=== PATIENT | male | born 1970 | race Caucasian/White ===

== ENCOUNTER 2024-10-22 05:25 | Observation (INO) ==
--- NOTE | 2024-10-20 11:19 | Anesthesiology Consultation ---
Date of Service October 20, 2024 Assessment & Plan (1) Encounter for pre-operative examination: Chart Review Chart Review: Acceptable Risk for Surgery and Patient NOT seen in Pre Admission Testing -POC INR and EKG ordered for AM of surgery Infectious Disease screening: Per PAT nursing assessment on 10/09/24, No known infectious disease contacts in past 10 days or current infectious disease symptoms. No recent travel outside the country. Inmate at correctional facility; will have COVID testing prior to surgery per protocol History Surgery Operation Date: 10/22/24 07:00 Proposed Procedures p Robotic Assisted Laparoscopic Excision of Pelvic Mass, Possible Radical Prostatectomy, Possible Bowel Resection/Colectomy, Possible Bladder Resection, Possible Open, Possible Pelvic Lymph Node Dissection - Kenroy Morgan, DO Height/Weight Height: 5 ft 10 in Weight: 97.522 kg Allergies Allergy/AdvReac Type Severity Reaction Status Date / Time iodine Allergy Unknown Verified 10/10/23 08:43 Penicillins Allergy Unknown Verified 10/10/23 08:43 shellfish derived Allergy Unknown Verified 10/10/23 08:43 bacitracin AdvReac Unknown Verified 10/10/23 08:43 [From Neosporin ([id number])] neomycin AdvReac Unknown Verified 10/10/23 08:43 [From Neosporin ([id number])] polymyxin B AdvReac Unknown Verified 10/10/23 08:43 [From Neosporin ([id number])] Seafood Allergy Unknown Uncoded 10/10/23 08:43 [facility] [place] AdvReac Contraindicated Uncoded 10/09/24 11:03 for pt. per [facility] record Medications Home Medications Medication Instructions Recorded Confirmed Last Taken amlodipine 10 mg tablet 10 mg PO DAILY 08/16/20 10/09/24 10/09/23 08:00 metoprolol tartrate 50 mg tablet 50 mg PO BID 08/16/20 10/09/24 10/10/23 06:00 (Lopressor) atorvastatin 10 mg tablet 10 mg PO HS 10/01/23 10/09/24 10/09/23 17:30 duloxetine 60 mg capsule,delayed 60 mg PO HS 10/01/23 10/09/24 10/09/23 17:30 release sprinkle warfarin 3 mg tablet 6 mg PO HS 04/02/24 04/11/25 04/10/24 17:30 mirtazapine 30 mg tablet 30 mg PO HS 10/09/24 10/09/24 Unknown oxcarbazepine 150 mg tablet 150 mg PO QAM 10/09/24 10/09/24 Unknown topiramate 50 mg tablet 50 mg PO HS 10/09/24 10/09/24 Unknown Past Medical History Medical History (Updated 10/20/24 @ 11:24 by Marylou Velasquez PA-C) Anxiety disorder Atrial fibrillation BPH loc w/o ur obs/LUTS Depressive disorder Disease of anus and rectum, unspecified Elevated PSA Hyperlipidemia Hypertension Inmate in correctional facility Other intervertebral disc degeneration, lumbar region Personal history of transient ischemic attack (TIA), and cerebral infarction without residual deficits Noted per remote [facility] records dating back to 2020 Unspecified hemorrhoids Past Surgical History Surgical History (Updated 10/20/24 @ 11:26 by Marylou Velasquez PA-C) Hx of cystoscopy cysto, prostate bx, transrectal US 10/10/23: GA: LMA#5 iGel Surgical history unknown Previous surgical history unknown until procedure at [facility] 2023 Social History Smoking Status: Unknown if ever smoked Testing Laboratory Results 10/14/24: WBC: 5.09 H/H: 14.2/42.5 PLATELETS: 194 SODIUM: 141 POTASSIUM: 3.9 CHLORIDE: 105 CO2: 27 BUN: 14 CREATININE: 0.76 GLUCOSE: 81 urine culture: no growth Electrocardiogram Date: 10/14/24 Afib with slow ventricular response, rate: 56bpm. NS TWA (*unconfirmed) Chest X-Ray Date: 10/14/24 Findings: + NAD
[~2024-10-22 05:25] MED LIST: ALLERGY Noted to ORDERED Medication SCH
[2024-10-22] MEDS: LR 15ML/HR IV SCH (05:54)
[2024-10-22 06:20] LABS: INR 2.4 (0.9-1.1); Partial Thromboplastin Ratio 1.4; Partial Thromboplastin Time 37 Seconds (21-31); Prothrombin Time 24.5 Seconds (9.0-12.0)
--- NOTE | 2024-10-22 06:31 | History & Physical Report ---
Date of Service October 22, 2024 Assessment & Plan (1) Pelvic mass: (2) Prostatic abscess: (3) Prostatic mass: (4) Bladder outlet obstruction: (5) Elevated PSA: (6) HTN (hypertension): (7) Atrial fibrillation: (8) Elevated INR: (9) Personal history of transient ischemic attack (TIA), and cerebral infarction without residual deficits: Plan Patient with large prostatic fluid collection versus pelvic mass versus abscess versus inflammatory lesion within the pelvis. Imaging does appear to have mass coming off of the prostate. Difficulty determining if related to seminal vesicle prostate or other structure in the pelvis. Most recent imaging had been thoroughly reviewed different options have been discussed extensively with patient and have been coordinated through the [facility] [place]. Patient is on Coumadin with history of A-fib and previous TIA. This was not he ld for the recommended 5 days prior to the planned abdominal surgery with robotic intervention possible resection of mass and possible resection of bowel bladder or other structure. Patient's Coumadin was only held starting yesterday. Had last dosed on Saturday. Is on 6 mg. Patient's INR remained elevated this morning on reanalysis. Reviewed extensively increased risks specifically related to bleeding. Reviewed other alternatives and options. Discussed significant increased risk with abdominal surgery. Reviewed options moving forward including possible transurethral attempt at drainage. Did discuss location of masslike structure and large fluid collection and the appearance of possible prostatic mass/cyst versus abscess. Reviewed extensively options including attempted transurethral resection. Did discuss risk of bleeding with this approach. Discussed concern related to mildly elevated INR. Due to concern about possible development of infection or sepsis if fluid collection is abscess and concern for possible obstruction especially of the right ureter due to location reviewed options for surgical intervention and discussed risks and benefits extensively. Discussed options to closely monitor and observe patient after procedure for bleeding issues and other concerns while INR still elevated. Discussed continued holding of the Coumadin and close monitoring while hospitalized. Will likely need hospitalist assessment and evaluation for monitoring and for evaluation for possible reinitiation of the Coumadin after procedure. Reviewed extensively with patient. [facility] [place] [facility] as well as the perioperative team and operative team. Risks and benefits were thoroughly reviewed. Coordinating with anesthesiology as well. Risks and benefits discussed at length for procedure. These include bleeding, infection, injury to surrounding tissues or organs, and risks associated with anesthesia. Patient states understanding and agrees to proceed. Will sign consent and proceed. Plan for transurethral resection of prostate, possible biopsy of pelvic mass, possible retrograde pyelograms bilateral History of Present Illness Primary Care Provider: [facility] Patient here for procedure. Patient with large cystic pelvic mass versus lesion greater than 11 cm found on imaging. Previously had been biopsied with findings for inflammatory issues with outside endings of malignancy. Initially had plan to move forward with abdominal surgery for excision and removal of mass. Patient is on Coumadin. This was not held for the recommended 5 days and was only stopped on Saturday with only 1 dose held. Patient's INR was checked this morning and found to be persistently elevated at 2.4. Due to this discussed extensively with patient significant increased risk and concern with bleeding especially with abdominal approach and possible need for open resection or surgical intervention on other systems. Otherwise no changes in medical issues. No major changes in urinary issues. Continued issues and concerns. No change in pain or discomfort. No severe fevers or chills. No chest pain or shortness of breath. Risks and benefits discussed at length for procedure. These include bleeding, infection, injury to surrounding tissues or organs, and risks associated with anesthesia. Patient states understanding and agrees to proceed. Consent and supporting information completed. Allergies Allergy/AdvReac Type Severity Reaction Status Date / Time iodine Allergy Unknown Swelling Verified 10/22/24 05:52 of Lip/Tongue/Throat Penicillins Allergy Unknown Swelling Verified 10/22/24 05:52 of Lip/Tongue/Throat shellfish derived Allergy Unknown Swelling Verified 10/22/24 05:52 of Lip/Tongue/Throat bacitracin AdvReac Unknown Redness of Verified 10/22/24 05:53 [From Neosporin Skin ([id number])] neomycin AdvReac Unknown Redness of Verified 10/22/24 05:53 [From Neosporin Skin ([id number])] polymyxin B AdvReac Unknown Redness of Verified 10/22/24 05:53 [From Neosporin Skin ([id number])] Seafood Allergy Unknown Swelling Uncoded 10/22/24 05:52 of Lip/Tongue/Throat [facility] [place] AdvReac Contraindicated Uncoded 10/22/24 05:33 for pt. per [facility] record Home Medications Medication Instructions Recorded Confirmed Type amlodipine 10 mg tablet 10 mg PO BID 08/16/20 10/22/24 History metoprolol tartrate 50 mg tablet 50 mg PO BID 08/16/20 10/22/24 History (Lopressor) atorvastatin 10 mg tablet 10 mg PO HS 10/01/23 10/22/24 History duloxetine 60 mg capsule,delayed 60 mg PO HS 10/01/23 10/22/24 History release sprinkle warfarin 3 mg tablet 6 mg PO HS 10/01/23 10/22/24 History mirtazapine 30 mg tablet 30 mg PO HS 10/09/24 10/22/24 History oxcarbazepine 150 mg tablet 150 mg PO QAM 10/09/24 10/22/24 History topiramate 50 mg tablet 50 mg PO HS 10/09/24 10/22/24 History Past Med/Surg History Problem List (Updated 10/22/24 @ 06:39 by Kenroy Morgan DO) Elevated INR Prostatic abscess Pelvic mass Bladder outlet obstruction Prostatic mass Elevated PSA Atrial fibrillation HTN (hypertension) Anxiety Depression Medical History Inmate in correctional facility Unspecified hemorrhoids Personal history of transient ischemic attack (TIA), and cerebral infarction without residual deficits Noted per remote [facility] records dating back to 2020 Other intervertebral disc degeneration, lumbar region Hypertension Hyperlipidemia Elevated PSA Disease of anus and rectum, unspecified Atrial fibrillation Anxiety disorder Depressive disorder BPH loc w/o ur obs/LUTS Surgical History Hx of cystoscopy cysto, prostate bx, transrectal US 10/10/23: GA: LMA#5 iGel Surgical history unknown Previous surgical history unknown until procedure at [facility] 2023 Social History Smoking Status: Unknown if ever smoked Preferred Language: Unknown Communication Ability: Unknown Deodorizer Operator Required: No Current Living Situation: Other Current Living Situation Comment: inmate [facility] Feels Safe at Home: Yes Assistive Devices Comment: Unknown Review of Systems All systems reviewed & are unremarkable except as noted in HPI & below Physical Exam Physical Exam: General: Alert/Arousable. No Acute illness. Obese. HEENT: Inspection normal. Normal inspection of face. Normal inspection of neck. Psychologic: Normal affect/No change in mentation. Respiratory: No use of accessory muscles. No respiratory changes or exacerbation or changes with tachypnea or dyspnea. Cardiovascular: No tachycardia Skin: [place] and Dry. No new rashes or visible lesions. Abdomen: Normal inspection. No guarding. Results & Data Vital Signs (Past 12 Hours) Vital Signs Temp Pulse Resp BP Pulse Ox O2 Del Method 10/22/24 05:35 36.8 C 87 18 127/80 97 Room Air PG Care Time/CCT Total # of Minutes Spent Total Time Spent with Patient: Total time spent is greater than 50% in coordination of care (as documented) at patient's floor/unit and/or counseling patient: Coding Level of Care Code None Diagnoses Pelvic mass R19.00 Prostatic abscess N41.2 Prostatic mass N42.89 Bladder outlet obstruction N32.0 Elevated PSA R97.20 HTN (hypertension) I10 Atrial fibrillation I48.91 Elevated INR R79.1 Personal history of transient ischemic attack (TIA), and cerebral infarction without residual deficits Z86.73
[2024-10-22] MEDS ORDERED: PROPOFOL IV EMULSION 10 MG/ML 20 ML VIAL IV ONE (06:37)
[2024-10-22] MEDS ORDERED: LIDOCAINE 2% 2 ML VIAL/AMP(20MG/ML) INFIL ONE (06:37)
[2024-10-22] MEDS ORDERED: DEXAMETHASONE SOD INJ 4 MG/ML VIAL ONE (06:37)
[2024-10-22] MEDS ORDERED: ONDANSETRON INJ 2 MG/ML 2 ML VIAL ONE (06:37)
[2024-10-22] MEDS ORDERED: fentaNYL citrate PF 100 MCG/2 ML VIAL ONE ×2 (06:37→08:25)
[2024-10-22] MEDS ORDERED: MIDAZOLAM HCL 1 MG/ML 2ML VIAL ONE (06:37)
[2024-10-22] MEDS: CIPROFLOXACIN / D5W 400 MG/200 ML BAG IV SCH ×2 (06:59→18:36)
[2024-10-22] MEDS ORDERED: MoRPHine SULFATE 2 MG/ML CARP IV PRN (07:05)
[2024-10-22] MEDS ORDERED: ONDANSETRON INJ 2 MG/ML 2 ML VIAL IV PRN (07:05)
[2024-10-22] MEDS ORDERED: CIPROFLOXACIN / D5W 400 MG/200 ML BAG IV SCH ×2 (07:15→16:45)
[2024-10-22] MEDS ORDERED: PROMETHAZINE HCL 6.25 MG in SODIUM CHLORIDE 0.9% 50 ML IV PRN (07:24)
[2024-10-22] MEDS ORDERED: fentaNYL citrate PF 100 MCG/2 ML VIAL IV PRN (07:24)
[2024-10-22] MEDS ORDERED: ATROPINE SULFATE 0.1 MG/ML 10ML SYR IV PRN (07:24)
--- NOTE | 2024-10-22 08:16 | Fluoroscopy Report ---
FL retrograde includes kub CLINICAL HISTORY: RETROGRADE COMPARISON STUDY: None FLUOROSCOPY TIME: 30 seconds FLUOROSCOPY IMAGES: 4 EXPOSURE DOSE: 12 mGy FINDINGS: Fluoroscopy was provided for urologic procedure. IMPRESSION: Intraoperative fluoroscopy. ACT 112: Negative or not required by law. Electronically signed by: Saurabh Crockett M.D. 10/22/2024 8:15 AM
[2024-10-22] MEDS: DIATRIZOATE MEGLUMINE 30% 100ML VIAL INSTIL ONE (08:31)
--- NOTE | 2024-10-22 09:04 | Operative Report ---
PG Post Operative Report Pre & Post Diagnosis Operation Date: 10/22/24 07:00 Pre-Op Diagnosis: Pelvic Mass, Prostatic Mass, Bladder Outlet Obstruction Post-Op Diagnosis: Pelvic Mass, Prostatic Mass, Bladder Outlet Obstruction I identified the patient and participated in the time-out.: Yes Procedure Operation Date: 10/22/24 07:00 Actual Procedures Cystoscopy with Bilateral retrograde pyelogram, Bilateral stent placement, and bladder fulguration. Transurethral Resection of Prostate, Transurethral Resection of Prostate Mass, Aspiration of Prostate Cyst Rectal Exam under anesthesia. - Kenroy Morgan, Surgeon Kenroy Morgan, II, DO Watch Supervisor None Estimated Blood Loss 10 Findings Consistent with Post-Op Diagnosis Swollen, inflamed, Large Prostate with obstruction. Large mobile, extremely firm mass of the pelvis Ulcerated irritation of the bladder. Bilateral displacement of the ureters. Significant external compression of the bladder. Subglandular hypospadias Large complex cystic structure with nodular masses and irregular appearance of tissue unroofed with multiple channels from approximately the 5 o'clock position up to the 8 o'clock position within the prostatic tissue with approximately 2 cm deep within to the prostatic tissue that had to be resected in order to open up the chambers. Within the chamber was a serous/clear fluid was seen draining. 1 chamber did have a dark red/brown fluid. No obvious major bleeding or irregularities. Decrease compression likely due to drainage of the cystic structure compressing the bladder however not completely resolved Specimens Prostate Resection Prostate Mass Resection Aspiration of Prostatic cyst. Drains 24Fr [address] Hematuria Catheter 6 x 24 double-J ureteral stents bilaterally Anesthesia Type General Complications none Disposition Disposition: Recovery Room Indications Patient with obstruction due to prostatic mass vs pelvic mass with significant compression of the bladder and rectum. Due to elevated INR patient elected to move forward with endoscopic assessment and possible resection. Risks and benefits discussed at length. Description of Procedure Patient was consented and brought back to the operating room. Patient was placed under anesthesia in the supine position and moved to the dorsal lithotomy position. Patient was prepped and draped in the regular sterile fashion. A time out was completed. A 30degree Cystoscope was placed into the bladder and the entire bladder was examined. Patient did have a hypospadias. The UO's were identified as well as the bladder neck, trigone, dome, and the other important landmarks. The prostatic urethra and large lobes/adenoma was assessed and the veru and bladder neck identified and area/size was assessed. A dual-lumen catheter was selected and the UO's were cannulated. The bladder was severely compressed likely due to the large structure. The UOs on each side were assessed they appeared to be significantly displaced by the structure. Bilateral retrograde pyelograms were completed. Significant displacement of the ureter was noted. Wires were placed bilaterally and a 6 x 24 double-J ureteral stents were placed bilaterally. This allowed better assessment and visualization of the ureters during the next episode of process as well as ability to continue with drainage. Digital rectal exam was completed. Throughout multiple portions of the procedure digital rectal exams were completed changing gloves each time. The large structure was able to be appreciated. It did appear to be free from the rectum however was large and obstructive and causing significant compression of the surrounding tissues. Did not appear to have any invasion or fixed appearance. The prostate was further assessed. The prostatic tissue especially on the right lateral lobe was severely inflamed it appeared to be bulging and significant obstruction of the bladder neck was noted. The resection scope was placed and the fine bipolar loop was selected. Resection began at approximately the 7 o'clock position. The tissue was resected down. Some small pockets of fluid were appreciated within the prostatic tissue. All bleeding was controlled. Resection was then taken from the 5 o'clock position. Between the 5 and 7 o'clock positions, a channel was created from bladder neck to the veru. Resection was then taken from the 11 o'clock position down along the right lateral wall to resect the lateral lobe. In the upper 11 and 10 o'clock position the tissue was taken down to capsule fibers. The tissue of the lateral lobe appeared to be likely chronically inflamed. With further resection traveling down towards the channel pockets of fluid were appreciated. There was bulging areas of tissue pockets of serous appearing fluid were appreciated. On further resection a large chamber was unroofed. A large amount of fluid was appreciated draining. The tissue that had been resected up to this point was irrigated clear. The fluid was irrigated out. This tissue was sent as a Prostate resection specimen to distinguish between the tissue coming from the cystic mass/irregularity. All bleeding was controlled during the resection process. No significant or major bleeding was noted. Resection had been taken to the capsule fibers along the majority of the lateral wall. Attention was then taken back to the 5 to 8 o'clock position. This tissue was further resected. Additional prostatic tissue was resected and multiple chambers were appreciated in this area. An additional large chamber was discovered at approximately the 5 o'clock position closer to the bladder neck. A 10 [place] catheter was utilized into the chamber and fluid was aspirated. This was sent for cytology. At this point a digital rectal exam was completed. A large cystic structure was still appreciated deep and appeared to be likely still compressing a portion of the bladder however the overall structure appeared to have been decreased. No fluid was able to be expressed on digital rectal exam. The Specimen was removed and sent for analysis. The specimen was sent as the prostatic mass/cystic mass resection. The resection bed and any bleeding areas were fulgurated/cauterized and the entire area inspected. All bleeding was controlled. Additional tissue was further resected. The chambers were resected at their openings in order to allow a adequate drainage channel. All bleeding had been controlled. The prostatic urethra appeared to be tracy stically improved and open. The bladder was inspected a final time. The bladder was emptied and irrigated. All specimen and debris was removed. The scope was removed with the bladder partially full. A catheter was placed and balloon elevated. This was easily irrigated. The patient was cleaned, aroused from anesthesia, and transferred to the pacu in stable condition having tolerated the procedure well with no complications. I was present and participated in all aspects of the procedure. The patient will be monitored in the PACU until transferred. Will plan to monitor overnight with observation. Will continue with CBI overnight with plans to decrease over time. Will maintain catheter for approximately 10 days with plans to follow-up for pathology and catheter removal. Will likely need repeat imaging in the next 1 to 2 months and can discuss this further at follow-up I attest to the content of the Intraoperative Record and any orders documented therein. Any exceptions are noted below.
[2024-10-22 09:45] LABS: Basophils # (auto) 0.02 K/uL (0.00-0.20); Basophils % (auto) 0.3 %; Eosinophils # (auto) 0.04 K/uL (0.00-0.50); Eosinophils % (auto) 0.7 %; Hematocrit (blood only) 40.2 % (42.0-52.0); Hemoglobin 14.1 g/dl (14.0-18.0); Immature Granulocytes # (auto) 0.02 K/uL (0.01-0.20); Immature Granulocytes % (auto) 0.3 %; Lymphocytes # (auto) 0.65 K/uL (1.20-3.40); Lymphocytes % (auto) 10.6 %; Mean Corpuscular Hemoglobin 30.8 pg (25.0-34.0); Mean Corpuscular Hgb Conc 35.1 g/dL (32.0-36.0); Mean Corpuscular Volume 87.8 fL (80.0-100.0); Mean Platelet Volume 9.3 fL (9.4-12.4); Monocytes # (auto) 0.17 K/uL (0.11-0.59); Monocytes % (auto) 2.8 %; Neutrophils # (auto) 5.24 K/uL (1.40-6.50); Neutrophils % (auto) 85.3 %; Platelet Count 153 K/uL (130-400); RDW Coefficient of Variation 13.3 % (11.5-14.5); RDW Standard Deviation 42.7 fL (36.4-46.3); Red Blood Count 4.58 M/uL (4.70-6.10); White Blood Count 6.14 K/ul (4.8-10.8)
[2024-10-22 10:10] LABS: Albumin Globulin Ratio 1.5 (0.9-2); Albumin Level 4.2 gm/dl (3.4-5.0); BUN Creatinine Ratio 17.2 (10-20); Bilirubin,Total 0.8 mg/dl (0.2-1.0); Calcium 8.5 mg/dl (8.6-10.3); Creatinine Clr Calc Pharmacy 97.8 ml/min; Globulin 2.8 gm/dl (2.5-4.0); Potassium 3.7 mmol/L (3.5-5.1)
--- NOTE | 2024-10-22 10:51 | Electrocardiogram Report ---
Test Reason : Blood Pressure : */* mmHG Vent. Rate : 76 BPM Atrial Rate : 83 BPM P-R Int : * ms QRS Dur : 86 ms QT Int : 424 ms P-R-T Axes : * 39 84 degrees QTcB Int : 477 ms Atrial fibrillation Abnormal ECG When compared with ECG of 10-Oct-2023 08:42, (unconfirmed) Criteria for Septal infarct are no longer Present Confirmed by Cale Emmanuel ([id number]) on 10/22/2024 10:51:32 AM Referred By: Kenroy Morgan Confirmed By: Cale Emmanuel
--- NOTE | 2024-10-22 13:54 | Anesthesiology Progress Note ---
Date of Service October 22, 2024 Anesthesia Post Procedure Vital Signs Vital Signs: Temp Pulse Pulse Resp BP BP Pulse Ox 10/22/24 13:00 36.4 C L 87 15 123/82 96 10/22/24 12:00 36.3 C L 85 14 114/75 94 10/22/24 11:30 70 15 126/83 93 10/22/24 11:00 87 21 137/102 H 93 10/22/24 10:45 76 20 138/93 95 10/22/24 10:30 83 12 139/86 94 10/22/24 10:15 82 21 109/75 97 10/22/24 10:00 68 15 97/64 L 93 10/22/24 09:45 69 14 105/68 94 10/22/24 09:40 36.7 C 73 18 120/83 92 10/22/24 09:30 78 15 138/89 93 10/22/24 09:20 79 14 132/88 94 10/22/24 09:10 73 15 136/88 98 10/22/24 09:00 75 15 135/94 92 10/22/24 08:50 36.3 C L 79 17 141/79 H 96 10/22/24 05:35 36.8 C 87 18 127/80 97 O2 Del Method O2 Flow Rate 10/22/24 13:00 Room Air 10/22/24 12:00 Nasal Cannula 2 10/22/24 11:30 Nasal Cannula 2 10/22/24 11:00 Nasal Cannula 2 10/22/24 10:45 Nasal Cannula 2 10/22/24 10:30 Nasal Cannula 2 10/22/24 10:15 Nasal Cannula 2 10/22/24 10:00 Nasal Cannula 2 10/22/24 09:45 Nasal Cannula 2 10/22/24 09:40 Nasal Cannula 2 10/22/24 09:30 Room Air 10/22/24 09:20 Oxymask 6 10/22/24 09:10 Oxymask 13 10/22/24 09:00 Oxymask 13 10/22/24 08:50 Oxymask 13 10/22/24 05:35 Room Air Transfer of Care Handoff Completed per policy Notes Mental Status: alert / awake / arousable Patient Amnestic to Procedure: Yes Nausea / Vomiting: adequately controlled Pain: adequately controlled Airway Patency, RR, SpO2: stable & adequate BP & HR: stable & adequate Hydration State: stable & adequate Anesthetic Complications: no major complications apparent
[2024-10-22] MEDS: oxyCODONE/ACETAMINOPHEN 5mg/325mg TAB PO PRN (15:50)
[2024-10-22] MEDS: OXcarbazepine 150 MG TABLET PO SCH (15:54)
[2024-10-22] MEDS: amLODIPine BESYLATE 5 MG TAB PO SCH (17:20)
[2024-10-22] MEDS: DOCUSATE SODIUM 100 MG CAP PO SCH (17:21)
[2024-10-22] MEDS: METOPROLOL TARTRATE 50 MG TAB PO SCH (17:21)
--- NOTE | 2024-10-22 17:42 | Consultation ---
Date of Consultation October 22, 2024 Assessment & Plan (1) Pelvic mass: s/p cystoscopy by Dr Morgan today the following were completed - * Bilateral retrograde pyelogram * Bilateral ureteral stent placement * Bladder fulguration * Transurethral Resection of Prostate * Transurethral Resection of Prostate Mass * Aspiration of Prostate Cyst Await pathology from today's procedure Defer all management to urology (2) Prostatic mass: as above in #1 (3) Atrial fibrillation: rates are controlled on metoprolol tartrate 50mg BID coumadin on hold INR in am tomorrow (4) HTN (hypertension): cont amlodipine cont metoprolol (5) Anxiety: cont all chronic meds including duloxetine, mirtazapine, oxcarbazepine, and topamax (6) Depression: as above in #5 (7) Hyperlipidemia: cont statin (8) BPH loc w/o ur obs/LUTS: s/p TURP is not on chronic meds for BPH (9) History of TIA (transient ischemic attack): resume coumadin when ok with primary urological team cont statin Plan Thank you for this consult. Our team will follow with you. History of Present Illness Requesting Physician: Dr Kenroy Morgan Reason for Consultation: post-op medical management Attending Physician: Kenroy Morgan, II, DO History of Present Illness 54yo male, inmate at [facility] - with h/o permanent a.fib on coumadin, TIA, HTN, hyperlipidemia, BPH, depression/anxiety. Presented today for complex urological surgery by Dr Kenroy Morgan due to a large pelvic cystic lesion causing bowel & bladder issues. During cystoscopy today the following were performed - * Bilateral retrograde pyelogram * Bilateral ureteral stent placement * Bladder fulguration * Transurethral Resection of Prostate * Transurethral Resection of Prostate Mass * Aspiration of Prostate Cyst A carpenter was left in place following the above and CBI was initiated. During my visit he was resting comfortably in bed. Since surgery he has had no dyspnea, chest pain, abdominal pain but does endorse "prostate pain" in the expected location of the prostate. He tolerated dinner without difficulty. Of note - patient only held his chronic coumadin on 10/21. INR this am was >2. Dr Morgan counseled the patient about increased risk of bleeding in the sett ing of his surgery and patient wished to proceed. Allergies Allergy/AdvReac Type Severity Reaction Status Date / Time iodine Allergy Unknown Swelling Verified 10/22/24 05:52 of Lip/Tongue/Throat Penicillins Allergy Unknown Swelling Verified 10/22/24 05:52 of Lip/Tongue/Throat shellfish derived Allergy Unknown Swelling Verified 10/22/24 05:52 of Lip/Tongue/Throat bacitracin AdvReac Unknown Redness of Verified 10/22/24 05:53 [From Neosporin Skin ([id number])] neomycin AdvReac Unknown Redness of Verified 10/22/24 05:53 [From Neosporin Skin ([id number])] polymyxin B AdvReac Unknown Redness of Verified 10/22/24 05:53 [From Neosporin Skin ([id number])] Seafood Allergy Unknown Swelling Uncoded 10/22/24 05:52 of Lip/Tongue/Throat OC Sula AdvReac Contraindicated Uncoded 10/22/24 05:33 for pt. per [facility] record Home Medications Medication Instructions Recorded Confirmed Type amlodipine 10 mg tablet 10 mg PO BID 08/16/20 10/22/24 History metoprolol tartrate 50 mg tablet 50 mg PO BID 08/16/20 10/22/24 History (Lopressor) atorvastatin 10 mg tablet 10 mg PO HS 10/01/23 10/22/24 History duloxetine 60 mg capsule,delayed 60 mg PO HS 10/01/23 10/22/24 History release sprinkle warfarin 3 mg tablet 6 mg PO HS 10/01/23 10/22/24 History mirtazapine 30 mg tablet 30 mg PO HS 10/09/24 10/22/24 History oxcarbazepine 150 mg tablet 150 mg PO QA 10/09/24 10/22/24 History topiramate 50 mg tablet 50 mg PO HS 10/09/24 10/22/24 History Patient History Medical History Inmate in correctional facility Unspecified hemorrhoids Personal history of transient ischemic attack (TIA), and cerebral infarction without residual deficits Noted per remote [facility] records dating back to 2020 Other intervertebral disc degeneration, lumbar region Hypertension Hyperlipidemia Elevated PSA Disease of anus and rectum, unspecified Atrial fibrillation Anxiety disorder Depressive disorder BPH loc w/o ur obs/LUTS Surgical History Hx of cystoscopy cysto, prostate bx, transrectal US 10/10/23: GA: LMA#5 iGel Surgical history unknown Previous surgical history unknown until procedure at [facility] 2023 Family History (Updated 10/22/24 @ 21:33 by Anuel Layton MD) Father Dementia Mother Heart disease Denies family history of Prostate cancer Social History (Updated 10/22/24 @ 21:33 by Anuel Layton MD) Tobacco Type: Smokeless Tobacco (Dip or Chew) Hx Alcohol Use: No Preferred Language: Unknown Communication Ability: Unknown Cad Librarian Required: No Current Living Situation: Other Current Living Situation Comment: inmate [facility] Feels Safe at Home: Yes Assistive Devices Comment: Unknown Review of Systems Review of Systems: gen - 55# weight loss last few years (intentional); no recent change in appetite; no fevers CV - no chest pain, no orthopnea pulm - no cough, no dyspnea, no DURANT GI - no abd pain or N/V - no recent hematuria prior to his procedure today; LUTS neuro - no headache heme - no recent bleeding issues Physical Exam Physical Exam: gen - lying comfortably in bed flat, watching TV, NAD neck - no JVD eyes - PERRL HENT - MMM, no lesions heart - irregularly irregular, s1 s2, no murmur lungs - CTA b/l abd - soft NT ND BS+ - moderately erythematous urine in carpenter bag; CBI in place ext - no edema, pulses 2+ b/l psych - a/o x 3 Results & Data Vital Signs (Past 12 Hours) Vital Signs Temp Pulse Resp BP BP Pulse Ox O2 Del Method 10/22/24 16:52 36.6 C 86 18 139/75 93 Room Air 10/22/24 16:00 71 18 118/79 96 Room Air 10/22/24 15:05 36.6 C 76 17 106/72 94 Room Air 10/22/24 14:03 36.4 C L 77 15 136/78 95 Room Air 10/22/24 13:00 36.4 C L 87 15 123/82 96 Room Air 10/22/24 12:00 36.3 C L 85 14 114/75 94 Nasal Cannula 10/22/24 11:30 70 15 126/83 93 Nasal Cannula 10/22/24 11:00 87 21 137/102 H 93 Nasal Cannula 10/22/24 10:45 76 20 138/93 95 Nasal Cannula 10/22/24 10:30 83 12 139/86 94 Nasal Cannula 10/22/24 10:15 82 21 109/75 97 Nasal Cannula 10/22/24 10:00 68 15 97/64 L 93 Nasal Cannula 10/22/24 09:45 69 14 105/68 94 Nasal Cannula 10/22/24 09:40 36.7 C 73 18 120/83 92 Nasal Cannula 10/22/24 09:30 78 15 138/89 93 Room Air 10/22/24 09:20 79 14 132/88 94 Oxymask 10/22/24 09:10 73 15 136/88 98 Oxymask 10/22/24 09:00 75 15 135/94 92 Oxymask 10/22/24 08:50 36.3 C L 79 17 141/79 H 96 Oxymask O2 Flow Rate 10/22/24 16:52 10/22/24 16:00 10/22/24 15:05 10/22/24 14:03 10/22/24 13:00 10/22/24 12:00 2 10/22/24 11:30 2 10/22/24 11:00 2 10/22/24 10:45 2 10/22/24 10:30 2 10/22/24 10:15 2 10/22/24 10:00 2 10/22/24 09:45 2 10/22/24 09:40 2 10/22/24 09:30 10/22/24 09:20 6 10/22/24 09:10 13 10/22/24 09:00 13 10/22/24 08:50 13 Laboratory Results Laboratory Results - last 24 hr 10/22/24 10/22/24 10/22/24 05:27 05:29 09:23 WBC 6.14 RBC 4.58 L Hgb 14.1 Hct 40.2 L MCV 87.8 MCH 30.8 MCHC 35.1 RDW Std Deviation 42.7 RDW Coeff of Tim 13.3 Plt Count 153 MPV 9.3 L Immature Gran % (Auto) 0.3 Neut % (Auto) 85.3 Lymph % (Auto) 10.6 [place] % (Auto) 2.8 Eos % (Auto) 0.7 Baso % (Auto) 0.3 Neut # (Auto) 5.24 Lymph # (Auto) 0.65 L [place] # (Auto) 0.17 Eos # (Auto) 0.04 Baso # (Auto) 0.02 Immature Gran # (Auto) 0.02 PT 24.5 H INR 2.4 H APTT 37 H PTT Ratio 1.4 Sodium 139 Potassium 3.7 Chloride 108 H Carbon Dioxide 25 Anion Gap 6 BUN 17 Creatinine 0.99 Est Cr Clr Drug Dosing 97.8 eGFR 89.96 BUN/Creatinine Ratio 17.2 Glucose 102 H POC Glucose Calcium 8.5 L Total Bilirubin 0.8 AST 16 ALT 10 Alkaline Phosphatase 69 Total Protein 7.0 Albumin 4.2 Globulin 2.8 Albumin/Globulin Ratio 1.5 SARS-CoV-2, RNA, NAAT NEGATIVE Blood Type O Negative Antibody Screen NEGATIVE 10/22/24 10:08 WBC RBC Hgb Hct MCV MCH MCHC RDW Std Deviation RDW Coeff of Tim Plt Count MPV Immature Gran % (Auto) Neut % (Auto) Lymph % (Auto) [place] % (Auto) Eos % (Auto) Baso % (Auto) Neut # (Auto) Lymph # (Auto) [place] # (Auto) Eos # (Auto) Baso # (Auto) Immature Gran # (Auto) PT INR APTT PTT Ratio Sodium Potassium Chloride Carbon Dioxide Anion Gap BUN Creatinine Est Cr Clr Drug Dosing eGFR BUN/Creatinine Ratio Glucose POC Glucose 129 H Calcium Total Bilirubin AST ALT Alkaline Phosphatase Total Protein Albumin Globulin Albumin/Globulin Ratio SARS-CoV-2, RNA, NAAT Blood Type Antibody Screen PG Care Time/CCT Total # of Minutes Spent Total Time Spent with Patient: Total time spent is greater than 50% in coordination of care (as documented) at patient's floor/unit and/or counseling patient: Coding Level of Care Code 06108 IN/OBS CONSULT LVL 3,45M Diagnoses Pelvic mass R19.00 Prostatic mass N42.89 Atrial fibrillation I48.91 HTN (hypertension) I10 Anxiety F41.9 Depression F32.9 Hyperlipidemia E78.5 BPH loc w/o ur obs/LUTS N40.0 History of TIA (transient ischemic attack) Z86.73
[2024-10-22] MEDS: DULoxetine HCL 60 MG CAP PO SCH (20:46)
[2024-10-22] MEDS: MIRTAZAPINE TAB 15 MG TAB PO SCH (20:46)
[2024-10-22] MEDS: ATORVASTATIN 10 MG TAB PO SCH (20:46)
[2024-10-22] MEDS: TOPIRAMATE 50 MG TAB PO SCH (20:46)
[2024-10-23 06:25] LABS: Hematocrit (blood only) 39.5 % (42.0-52.0); Hemoglobin 14.1 g/dl (14.0-18.0); Mean Corpuscular Hemoglobin 30.9 pg (25.0-34.0); Mean Corpuscular Hgb Conc 35.7 g/dL (32.0-36.0); Mean Corpuscular Volume 86.4 fL (80.0-100.0); Mean Platelet Volume 9.3 fL (9.4-12.4); Platelet Count 173 K/uL (130-400); RDW Coefficient of Variation 13.1 % (11.5-14.5); RDW Standard Deviation 41.1 fL (36.4-46.3); Red Blood Count 4.57 M/uL (4.70-6.10); White Blood Count 13.63 K/ul (4.8-10.8)
[2024-10-23 06:46] LABS: BUN Creatinine Ratio 17.3 (10-20); Calcium 8.8 mg/dl (8.6-10.3); Creatinine Clr Calc Pharmacy 93.1 ml/min
[2024-10-23 07:00] LABS: INR 1.8 (0.9-1.1); Prothrombin Time 18.8 Seconds (9.0-12.0)
--- NOTE | 2024-10-23 09:05 | Urology Progress Note ---
Date of Service October 23, 2024 Assessment & Plan (1) Pelvic mass: (2) Prostatic mass: (3) Elevated INR: Plan: Patient with pelvic/prostate mass who is POD #1 s/p Cystoscopy with Bilateral retrograde pyelogram, Bilateral stent placement, and bladder fulguration. Transurethral Resection of Prostate, Transurethral Resection of Prostate Mass, Aspiration of Prostate Cyst; Rectal Exam under anesthesia with Dr. Morgan. Patient afebrile with stable vitals Labs reviewedcreatinine 1.04, WBC 13.63, hemoglobin 14.1, INR 1.8 Johnson draining castelan/maroon urine with CBI on slow Will plan to wean CBI as appropriate Nursing can manually irrigate Johnson catheter as needed for obstruction Plan to maintain Johnson catheter at discharge Continue to hold Coumadin for now, likely resume in 1-2 days if urine is clearing Continue IV antibiotics while inpatient and plan to transition to PO course after discharge Hospital medicine following -- appreciate assistance Plan to discharge after CBI is discontinued Will arrange postoperative follow-up with catheter removal Admission and Anticipated Discharge Date Admission Date: October 22, 2024 Subjective Patient seen and examined at bedside this am, 2 detention guards present. He is awake and sitting up in bed eating breakfast. No acute issues overnight. Reports some discomfort in prostate area. Johnson draining with hematuria, CBI on slow. No fever or chills. INR 1.8 today. Review of Systems Constitutional: as per Subjective / HPI Genitourinary: + as per Subjective / HPI Physical Exam Constitutional: no acute distress Respiratory: normal respiratory effort; no respiratory distress and no labored breathing Musculoskeletal: Head/Neck/Chest: normocephalic Neurologic: moves all extremities and awake Psychiatric: Orientation: alert and oriented x 3 Genitourinary: Johnson draining with castelan/maroon urine, small clots noted in tubing that easily passed through with CBI on slow Results & Data Vital Signs (Past 12 Hours) Vital Signs Temp Pulse Pulse Pulse Resp BP BP 10/23/24 07:51 36.8 C 75 16 141/84 H 10/23/24 04:12 36.7 C 84 18 137/91 10/22/24 22:57 37.2 C 85 18 140/91 10/22/24 21:47 81 Pulse Ox O2 Del Method 10/23/24 07:51 94 Room Air 10/23/24 04:12 93 Room Air 10/22/24 22:57 95 Room Air 10/22/24 21:47 PG Care Time/CCT Total # of Minutes Spent Total Time Spent with Patient: Total time spent is greater than 50% in coordination of care (as documented) at patient's floor/unit and/or counseling patient: Coding Level of Care Code None Diagnoses Pelvic mass R19.00 Prostatic mass N42.89 Elevated INR R79.1
[2024-10-23] MEDS: oxyBUTYnin chloride 5 MG TAB PO PRN (09:49)
[2024-10-23] MEDS: CIPROFLOXACIN / D5W 400 MG/200 ML BAG IV SCH (17:56)
--- NOTE | 2024-10-23 19:22 | Hospitalist Progress Note ---
Date of Service October 23, 2024 Assessment & Plan (1) Pelvic mass: Plan: s/p cystoscopy by Dr Morgan 10/22/24 the following were completed - * Bilateral retrograde pyelogram * Bilateral ureteral stent placement * Bladder fulguration * Transurethral Resection of Prostate * Transurethral Resection of Prostate Mass * Aspiration of Prostate Cyst pathology from prostate cyst - benign features, no cancer cells seen Defer all management to urology including CBI, carpenter, pain meds, etc. (2) Prostatic mass: Plan: as above in #1 (3) Atrial fibrillation: Plan: rates are controlled on metoprolol tartrate 50mg BID coumadin on hold INR 1.8 today; repeat INR am resume coumadin when ok with urology (4) HTN (hypertension): Plan: cont amlodipine cont metoprolol (5) Anxiety: Plan: cont all chronic meds including duloxetine, mirtazapine, oxcarbazepine, and topamax (6) Depression: Plan: as above in #5 (7) Hyperlipidemia: Plan: cont statin (8) BPH loc w/o ur obs/LUTS: Plan: s/p TURP is not on chronic meds for BPH (9) History of TIA (transient ischemic attack): Plan: resume coumadin when ok with primary urological team cont statin Plan Hyperglycemia - glucose 147 this am; check a1c in am Admission and Anticipated Discharge Date Admission Date: October 22, 2024 Subjective no events overnight tele - a.fib, rates <100 patient denies cp, dyspnea, abd pain, nausea carpenter remains with very light hematuria CBI is still on eating w/o difficulty passing flatus Review of Systems Review of Systems: gen - overall feels well - "prostate" pain remains CV - no orthopnea Physical Exam Physical Exam: gen - lying comfortably in bed flat, NAD neck - no JVD HENT - MMM, no lesions heart - irregularly irregular, s1 s2, no murmur, rate <100 lungs - CTA b/l abd - soft NT ND BS+ - light pink urine in carpenter bag; CBI in place ext - no edema, pulses 2+ b/l psych - a/o x 3 Results & Data Results & Data Vital Signs (Past 12 Hours) Vital Signs Temp Pulse Resp BP Pulse Ox O2 Del Method 10/23/24 15:49 37 C 64 16 134/86 97 Room Air 10/23/24 11:01 36.9 C 99 H 16 133/77 95 Room Air 10/23/24 07:51 36.8 C 75 16 141/84 H 94 Room Air Laboratory Results Laboratory Results - last 24 hr 10/23/24 06:10 WBC 13.63 H RBC 4.57 L Hgb 14.1 Hct 39.5 L MCV 86.4 MCH 30.9 MCHC 35.7 RDW Std Deviation 41.1 RDW Coeff of Tim 13.1 Plt Count 173 MPV 9.3 L PT 18.8 H INR 1.8 H Sodium 136 Potassium 4.0 Chloride 108 H Carbon Dioxide 22 Anion Gap 6 BUN 18 Creatinine 1.04 Est Cr Clr Drug Dosing 93.1 eGFR 84.80 BUN/Creatinine Ratio 17.3 Glucose 147 H Calcium 8.8 PG Care Time/CCT Total # of Minutes Spent Total Time Spent with Patient: Total time spent is greater than 50% in coordination of care (as documented) at patient's floor/unit and/or counseling patient: Coding Level of Care Code 13164 SUB INP/OBS CARE 07/25MIN Diagnoses Pelvic mass R19.00 Prostatic mass N42.89 Atrial fibrillation I48.91 HTN (hypertension) I10 Anxiety F41.9 Depression F32.9 Hyperlipidemia E78.5 BPH loc w/o ur obs/LUTS N40.0 History of TIA (transient ischemic attack) Z86.73
--- NOTE | 2024-10-24 07:13 | Urology Progress Note ---
Date of Service October 24, 2024 Assessment & Plan (1) Pelvic mass: (2) Prostatic mass: (3) Elevated INR: Plan Patient with pelvic/prostate mass who is POD #2 s/p Cystoscopy with Bilateral retrograde pyelogram, Bilateral stent placement, and bladder fulguration. Transurethral Resection of Prostate, Transurethral Resection of Prostate Mass, Aspiration of Prostate Cyst; Rectal Exam under anesthesia with Dr. Morgan. Urine consistency was light yellow with CBI clamped today. INR was reviewed and it is 1.4. Patient feels well and I think he is stable for discharge home back to the custodial. Low concern for infection given that he did not have a true fever overnight but he will be going home on Bactrim regardless He will be discharged with a Johnson catheter Follow-up with Dr. Morgan I will have the custodial restart his Coumadin this evening Admission and Anticipated Discharge Date Admission Date: October 22, 2024 Subjective No acute issues overnight. Patient did have a highest temperature of 37.8, but denies any feelings of fever. Patient overall feels well. Urine was light yellow with CBI clamped. Physical Exam Physical Exam: General: Alert and oriented, no acute distress HEENT: Normocephalic, mucous membranes moist Pulmonary: Nonlabored respirations Abdomen: Nondistended : Three-way Johnson catheter draining light yellow urine with CBI clamped. Extremities: Moves all 4 spontaneously Neuro: No gross deficits Skin: Warm, dry, no rashes noted Results & Data Vital Signs (Past 12 Hours) Vital Signs Temp Pulse Pulse Resp BP BP Pulse Ox 10/24/24 04:00 37.0 C 78 18 126/77 92 10/23/24 22:47 37.8 C H 87 18 135/89 96 10/23/24 21:59 85 O2 Del Method 10/24/24 04:00 Room Air 10/23/24 22:47 Room Air 10/23/24 21:59 PG Care Time/CCT Total # of Minutes Spent Total Time Spent with Patient: Total time spent is greater than 50% in coordination of care (as documented) at patient's floor/unit and/or counseling patient: Coding Level of Care Code 43421 SUB INP/OBS CARE 2/35MIN Diagnoses Pelvic mass R19.00 Prostatic mass N42.89 Elevated INR R79.1
[2024-10-24 07:36] VITALS: RESP 16
[2024-10-24 07:37] VITALS: O2SAT 93
[2024-10-24 08:04] LABS: INR 1.4 (0.9-1.1); Prothrombin Time 14.4 Seconds (9.0-12.0)
[2024-10-24 10:45] VITALS: BP 120/71; TEMP 99.3
[2024-10-24 14:35] VITALS: PULSE 84
--- NOTE | 2024-10-24 19:17 | Hospitalist Progress Note ---
Date of Service October 24, 2024 Assessment & Plan (1) Pelvic mass: Plan: s/p cystoscopy by Dr Morgan 10/22/24 the following were completed - * Bilateral retrograde pyelogram * Bilateral ureteral stent placement * Bladder fulguration * Transurethral Resection of Prostate * Transurethral Resection of Prostate Mass * Aspiration of Prostate Cyst pathology from prostate cyst - benign features, no cancer cells seen additional pathology is pending from the surgery CBI now off urine largely clear back to SCI with carpenter in place will need f/u with Dr Morgan in about 1-2 weeks (2) Prostatic mass: Plan: as above in #1 (3) Atrial fibrillation: Plan: rates are controlled on metoprolol tartrate 50mg BID coumadin has been on hold INR 1.4 today resume coumadin later today at 6mg/day no lovenox bridge recommend INR in 3-4 days for stability (4) HTN (hypertension): Plan: cont amlodipine cont metoprolol BPs acceptable (5) Anxiety: Plan: cont all chronic meds including duloxetine, mirtazapine, oxcarbazepine, and topamax (6) Depression: Plan: as above in #5 (7) Hyperlipidemia: Plan: cont statin (8) BPH loc w/o ur obs/LUTS: Plan: s/p TURP is not on chronic meds for BPH (9) History of TIA (transient ischemic attack): Plan: resume coumadin today w/o any bridge (ie - lovenox) cont statin Plan Hyperglycemia - glucose 147 yesterday am; a1c is pending Low-grade temperatures this am - Tm 37.[address] Pink about the temps -- patient quite stable, looks well on examination, no major complaints has been on cipro since the surgery recommend d/c to [facility] with antibiotics (cipro or keflex) to cover the prostate & urinary tract - perhaps 7 additional days but defer to primary urology team Admission and Anticipated Discharge Date Admission Date: October 22, 2024 Subjective tele overnight - a.fib, rate <100 passing flatus but no stool hasn't really been out of bed since admission denies abd pain, chest pain, dyspnea eating well CBI weaned off this am just before discharge he had slight hematuria in the carpenter bag; no clots Review of Systems Review of Systems: gen - no rigors cv - no orthopnea GI - no N/V Physical Exam Physical Exam: gen - lying comfortably in bed flat, NAD neck - no JVD HENT - MMM, no lesions heart - irregularly irregular, s1 s2, no murmur, rate <100 lungs - CTA b/l abd - soft NT ND BS+ - slight hematuria in carpenter bag ext - no edema, pulses 2+ b/l psych - a/o x 3 Results & Data Results & Data Vital Signs (Past 12 Hours) Vital Signs Temp Pulse Pulse Pulse Resp BP BP 10/24/24 14:35 84 10/24/24 11:18 37.4 C 84 74 16 135/89 120/71 10/24/24 10:44 37.4 C 74 16 120/71 10/24/24 10:25 70 10/24/24 07:35 37.6 C H 72 16 119/72 Pulse Ox O2 Del Method 10/24/24 14:35 10/24/24 11:18 93 10/24/24 10:44 93 Room Air 10/24/24 10:25 10/24/24 07:35 93 Room Air Laboratory Results Laboratory Results - last 24 hr 10/23/24 10/24/24 10/24/24 20:50 05:53 07:14 PT Cancelled 14.4 H INR Cancelled 1.4 H Estimat Average Glucose Cancelled Hemoglobin A1c Cancelled Nasal Screen MRSA (PCR) Negative Miscellaneous Test Pending PG Care Time/CCT Total # of Minutes Spent Total Time Spent with Patient: Total time spent is greater than 50% in coordination of care (as documented) at patient's floor/unit and/or counseling patient: Coding Level of Care Code 38522 SUB INP/OBS CARE 07/25MIN Diagnoses Pelvic mass R19.00 Prostatic mass N42.89 Atrial fibrillation I48.91 HTN (hypertension) I10 Anxiety F41.9 Depression F32.9 Hyperlipidemia E78.5 BPH loc w/o ur obs/LUTS N40.0 History of TIA (transient ischemic attack) Z86.73
--- NOTE | 2024-10-28 19:38 | Discharge Summary ---
Date of Service October 28, 2024 Admission HPI Per Admitting Provider Patient here for procedure. Patient with large cystic pelvic mass versus lesion greater than 11 cm found on imaging. Previously had been biopsied with findings for inflammatory issues with outside endings of malignancy. Initially had plan to move forward with abdominal surgery for excision and removal of mass. Patient is on Coumadin. This was not held for the recommended 5 days and was only stopped on Saturday with only 1 dose held. Patient's INR was checked this morning and found to be persistently elevated at 2.4. Due to this discussed extensively with patient significant increased risk and concern with bleeding especially with abdominal approach and possible need for open resection or surgical intervention on other systems. Otherwise no changes in medical issues. No major changes in urinary issues. Continued issues and concerns. No change in pain or discomfort. No severe fevers or chills. No chest pain or shortness of breath. Risks and benefits discussed at length for procedure. These include bleeding, infection, injury to surrounding tissues or organs, and risks associated with anesthesia. Patient states understanding and agrees to proceed. Consent and supporting information completed. Admission Exam Per Admitting Provider See H&P Principal Diagnosis Pelvic Mass Discharge Exam General: Alert in no acute distress. HEENT: Normocephalic Atraumatic. Inspection normal. Psychologic: Normal affect. Skin: [place] and Dry. No rashes or visible lesions. Abdomen: Soft Non-distended. No rebound or guarding. Discharge Data Allergies Allergy/AdvReac Type Severity Reaction Status Date / Time iodine Allergy Unknown Swelling Verified 10/22/24 05:52 of Lip/Tongue/Throat Penicillins Allergy Unknown Swelling Verified 10/22/24 05:52 of Lip/Tongue/Throat shellfish derived Allergy Unknown Swelling Verified 10/22/24 05:52 of Lip/Tongue/Throat bacitracin AdvReac Unknown Redness of Verified 10/22/24 05:53 [From Neosporin Skin ([id number])] neomycin AdvReac Unknown Redness of Verified 10/22/24 05:53 [From Neosporin Skin ([id number])] polymyxin B AdvReac Unknown Redness of Verified 10/22/24 05:53 [From Neosporin Skin ([id number])] Seafood Allergy Unknown Swelling Uncoded 10/22/24 05:52 of Lip/Tongue/Throat [facility] [place] AdvReac Contraindicated Uncoded 10/22/24 05:33 for pt. per [facility] record Consultations 10/22/24 07:05 Consult Hospitalist Routine Procedures Performed Operation Date: 10/22/24 07:00 Actual Procedures p Transurethral Resection of Prostate, Transurethral Resection of Prostate Mass, Aspiration of Prostate Cyst, Rectal exam under anesthesia(Not Applicable) - Kenroy Morgan DO s Cystoscopy, Bilateral stent placement, bilateral retrograde pyelogram, Bladder Fulguration(Not Applicable) - Kenroy Morgan, Ordered Studies 10/22/24 [place] retrograde includes kub Routine Hospital Course (1) Pelvic mass: (2) Prostatic mass: (3) Elevated INR: Plan Patient with pelvic/prostate mass who is POD #2 s/p Cystoscopy with Bilateral retrograde pyelogram, Bilateral stent placement, and bladder fulguration. Transurethral Resection of Prostate, Transurethral Resection of Prostate Mass, Aspiration of Prostate Cyst; Rectal Exam under anesthesia with Dr. Morgan. Urine consistency was light yellow with CBI clamped today. INR was reviewed and it is 1.4. Patient feels well and I think he is stable for discharge home back to the care home. Low concern for infection given that he did not have a true fever overnight but he will be going home on Bactrim regardless He will be discharged with a Johnson catheter Follow-up with Dr. Morgan I will have the care home restart his Coumadin this evening Total Time Total Time Spent Total Time Spent (In Minutes): 10 minutes Total Time Includes: Examination of the Patient, Discharge Planning, Medication Reconciliation and Communication With Other Providers Discharge Plan Discharge Items Patient Disposition: [facility] Reason For Visit: Pelvic Mass, Prostatic Mass, Bladder Outlet Obstru Discharge Diagnosis: Pelvic mass, prostatic mass, bladder outlet obstruction Activity: Per Instructions section Lifting: No more than 25 pounds Bathing Comment: Okay to shower after discharge Exercise/Sports: Wait until after follow-up appointment Non-emergency contact: Urologist Call non-emergency contact if: you have a fever and your temperature is above 101 Follow-up/Referrals: Jeimy GARCIA [Primary Care Provider] - Diet: Regular Addtl Attending Provider Instructions: Please take all medications as prescribed and keep all follow-ups as scheduled. Please call our office at [phone] with any questions, concerns or need to reschedule appointments for any reason. We are happy to assist you. Resume Coumadin on 10/24/24 if urine is clear to light pink. Recommend antibiotics after discharge - Bactrim DS 1 tab BID x 10 days. Your INR will need to be monitored more closely as bactrim can affect the metabolism of coumadin Activity: We recommend having someone with you for the first few days after surgery to help care for you. For the first 2 weeks after surgery, we would like you to get up and walk around. However, limit strenuous physical activity that would increase your heart rate. Don't lift anything heavier than 25 pounds until your follow-up appointment. Please avoid long car rides. Home Care: Unless directed otherwise, drink 6 to 8 glasses of water a day (enough to keep your urine light colored). This will also help keep a healthy flow of urine. We recommend using a stool softener for the first two weeks to avoid constipation. Johnson Catheter or Suprapubic Catheter care: Keep the catheter well secured with either a leg back or leg strap with large bag. Empty your bag when it's about half full. You may notice some blood in the bag. This is normal after surgery and while the catheter is in place. Use mild soap (such as Dove or Dial) and water to wash the catheter and the head of your penis daily, or more frequently if needed. Return to your normal diet, we encourage good protein intake to promote healing. You may shower as normal. Please avoid tub baths or soaking until catheter removed and incisions well healed. Wearing sweat pants while you have the catheter is recommended, they will be more comfortable. Follow-up Your follow up appointments for having your catheter removed, and follow up with your physician should already be scheduled. If you have any questions regarding this, please contact our office. Your final pathology report will be discussed at your physician follow-up appointment. Call [facility] at [phone] right away if you have any of the following: Chest pain or trouble breathing (call [phone] or go to the hospital) Fever of 101F or higher, uncontrolled vomiting Heavy bleeding, clots, or bright red blood from the catheter Catheter that falls out or stops draining Foul-smelling discharge from your catheter Pending Studies at Discharge: Yes Skilled Items Patient informed of condition?: Yes DNR: No Discharge Level of Care: Other Communicable Disease: No Discharge Prognosis: Stable Lines: None Urinary Catheter: Yes Medications and DC Order Prescriptions: Continued metoprolol tartrate [Lopressor] 50 mg tablet 50 mg PO BID amlodipine 10 mg tablet 10 mg PO BID atorvastatin 10 mg Tablet 10 mg PO HS warfarin 3 mg Tablet 6 mg PO HS duloxetine 60 mg Capsule, Delayed Rel Sprinkle 60 mg PO HS oxcarbazepine 150 mg Tablet 150 mg PO QAM mirtazapine 30 mg Tablet 30 mg PO HS topiramate 50 mg Tablet 50 mg PO HS Admission Data Admit Date/Time: 10/22/24 07:05 Attending Provider: Kenroy Morgan Admit Provider: Kenroy Morgan Primary Care Provider: Jeimy GARCIA Other Providers: Anuel Layton Other Interventions: Discharge Summary Assessment (RN) Last Done: 10/24/24 11:18 Coding Level of Care Code 30651 IN/OBS DISCH 30 MIN/LESS Diagnoses Pelvic mass R19.00 Prostatic mass N42.89 Elevated INR R79.1
== END 2024-10-24 15:16 ==
LOC: PACUINP 05:25 → ASU 05:25 → 2N 16:45

== ENCOUNTER 2025-04-01 09:52 | Inpatient (IN) ==
--- NOTE | 2025-03-30 10:57 | Anesthesiology Consultation ---
Date of Service March 30, 2025 Assessment & Plan (1) Encounter for pre-operative examination: Chart Review Chart Review: Acceptable Risk for Surgery and Patient NOT seen in Pre Admission Testing - Check coags AM DOS -Infectious Disease screening: Per PAT nursing assessment on 03/24/25. Patient resides at [facility]. No known infectious disease contacts in past 10 days or current infectious disease symptoms. No recent travel outside the country. Will order Obeo test for DOS TURP 10/22/24= Done under [place] with LMA #5 x 1 attempt, atraumatic, good seal History Surgery Operation Date: 04/01/25 12:05 Proposed Procedures p Robotic Assisted Laparoscopic Excision of Pelvic Mass - Kenroy Morgan, DO Height/Weight Height: 5 ft 10 in Weight: 97.522 kg Allergies Allergy/AdvReac Type Severity Reaction Status Date / Time iodine Allergy Unknown Swelling Verified 03/24/25 15:10 of Lip/Tongue/Throat Penicillins Allergy Unknown Swelling Verified 03/24/25 15:10 of Lip/Tongue/Throat shellfish derived Allergy Unknown Swelling Verified 03/24/25 15:10 of Lip/Tongue/Throat bacitracin AdvReac Unknown Redness of Verified 03/24/25 15:10 [From Neosporin Skin ([id number])] neomycin AdvReac Unknown Redness of Verified 03/24/25 15:10 [From Neosporin Skin ([id number])] polymyxin B AdvReac Unknown Redness of Verified 03/24/25 15:10 [From Neosporin Skin ([id number])] Seafood Allergy Unknown Swelling Uncoded 03/24/25 15:10 of Lip/Tongue/Throat OC [place] AdvReac Contraindicated Uncoded 03/24/25 15:10 for pt. per [facility] record Medications Home Medications Medication Instructions Recorded Confirmed Last Taken amlodipine 10 mg tablet 10 mg PO QAM 08/16/20 03/24/25 10/21/24 20:00 atorvastatin 10 mg tablet 10 mg PO HS 10/01/23 03/24/25 10/21/24 20:00 duloxetine 60 mg capsule,delayed 60 mg PO HS 10/01/23 03/24/25 10/21/24 20:00 release sprinkle mirtazapine 30 mg tablet 30 mg PO HS 10/09/24 03/24/25 10/21/24 20:00 topiramate 50 mg tablet 50 mg PO HS 10/09/24 03/24/25 10/21/24 20:00 acetaminophen 500 mg tablet 1,000 mg PO BID 03/24/25 03/24/25 Unknown (Acetaminophen Extra Strength) ascorbic acid (vitamin C) 1,000 mg 1,000 mg PO BID 03/24/25 03/24/25 Unknown tablet (Vitamin C) ibuprofen 600 mg tablet 600 mg PO TID 03/24/25 03/24/25 Unknown metoprolol tartrate 37.5 mg tablet 37.5 mg PO BID 03/24/25 03/24/25 Unknown sulfamethoxazole 800 1 tab PO UD 03/24/25 03/24/25 Unknown mg-trimethoprim 160 mg tablet (Bactrim DS) warfarin 4 mg tablet 4 mg PO DAILY 03/24/25 03/24/25 Unknown Past Medical History Medical History Anxiety disorder Atrial fibrillation on warfarin BPH loc w/o ur obs/LUTS Depressive disorder Disease of anus and rectum, unspecified Elevated PSA Hyperlipidemia Hypertension Inmate in correctional facility Other intervertebral disc degeneration, lumbar region Personal history of transient ischemic attack (TIA), and cerebral infarction without residual deficits Noted per [facility] records dating back to 2020 Past Family History Family History Father Dementia Mother Heart disease Denies family history of Prostate cancer Past Surgical History Surgical History Hx of cystoscopy cysto, prostate bx, transrectal US 10/10/23: [place]: LMA#5 iGel S/P TURP (10/22/24) TURP + resection of prostate mass + aspiration of prostate cyst + rectal exam cystoscopy + bilateral stent placements + bilateral retrograde pyelogram + bladder fulgeration -- Dr Morgan at [facility] Surgical history unknown Previous surgical history unknown until procedure at [facility] 2023 Social History Smoking Status: Unknown if ever smoked Testing Laboratory Results 03/25/25= WBC: 4.46 H/H: 10.5/34.2 PLATELETS: 249 SODIUM: 137 POTASSIUM: 4.5 CHLORIDE: 104 CO2: 23 BUN: 18 CREATININE: 1.51 GLUCOSE: 90 GFR: 51-62 UA: Turbid, trace protein, trace blood, 500 leukocyte esterase, 2+ nitrite, 6-10 RBC, >20 WBC, 4+ WBC clump, many bacteria, trace mucous, trace non squamous epithelial URINE CULTURE: E coli, >100,000 CFU/ML; in addition, multiple organisms consistent with ureteral merlin present at <10,000CFU.ML. Electrocardiogram Date: 10/22/24 Findings: + AFIB @ (76bpm) Chest X-Ray Date: 10/14/24 Findings: + NAD Other Testing Abdomen/Pelvis CT 12/24/24= Interval mildly enlarged left pelvic lymph node suspicious for metastatic disease. Persistent mass at the upper right aspect of the prostate. The cystic portion of the mass seen prior has decreased in size. The solid portion of the mass appears mildly increased in size. No other adverse change seen.
[2025-04-01] MEDS ORDERED: ACETAMINOPHEN 1000 MG/100 ML IV IV ONE (10:01)
[2025-04-01] MEDS: LR 15ML/HR IV SCH (10:25)
[2025-04-01 10:43] LABS: INR 1.3 (0.9-1.1); Partial Thromboplastin Time 35 Seconds (21-31); Prothrombin Time 13.8 Seconds (9.0-12.0)
[2025-04-01] MEDS ORDERED: ONDANSETRON INJ 2 MG/ML 2 ML VIAL ONE (11:51)
[2025-04-01] MEDS ORDERED: DEXAMETHASONE SOD INJ 4 MG/ML VIAL ONE (11:51)
[2025-04-01] MEDS ORDERED: LIDOCAINE 2% 2 ML VIAL/AMP(20MG/ML) INFIL ONE (11:51)
[2025-04-01] MEDS ORDERED: MIDAZOLAM HCL 1 MG/ML 2ML VIAL ONE (11:51)
[2025-04-01] MEDS ORDERED: ROCURONIUM BROMIDE 10 MG/ML 5 ML VIAL IV ONE ×3 (11:51→15:19)
[2025-04-01] MEDS ORDERED: PROPOFOL IV EMULSION 10 MG/ML 20 ML VIAL IV ONE (11:51)
[2025-04-01] MEDS ORDERED: HYDROmorphone INJ 1 MG/ML SYRINGE IV PRN (13:04)
[2025-04-01] MEDS ORDERED: ATROPINE SULFATE 0.1 MG/ML 10ML SYR IV PRN (13:04)
[2025-04-01] MEDS ORDERED: ONDANSETRON INJ 2 MG/ML 2 ML VIAL IV PRN ×2 (13:04→22:08)
--- NOTE | 2025-04-01 13:14 | History & Physical Bridge Note ---
Date of Service April 01, 2025 History & Physical Bridge Note I have examined the patient, reviewed the History & Physical and in the interval since the performance of the History & Physical I have noted the following changes of clinical significance: no changes noted
[2025-04-01] MEDS ORDERED: PHENYLEPHRINE HCL 10 MG/ML VIAL ONE (14:00)
[2025-04-01] MEDS: ceFAZolin 3000MG 3,000 MG/72.5 ML BAG IV SCH (14:00)
[2025-04-01] MEDS ORDERED: METHYLENE BLUE 0.5% 10 ML VIAL ONE (14:43)
[2025-04-01] MEDS ORDERED: DexMEDEtomidine HCL IV 100 MCG/ML VIAL IV ONE (17:02)
[2025-04-01] MEDS: FLOSEAL HEMOSTATIC MATRIX 10ML TOP ONE (17:31)
[2025-04-01] MEDS: SURGICEL ABSORB HEMOSTAT 2IN X 14IN TOP ONE (17:32)
[2025-04-01] MEDS: TISSEEL FIBRIN SEALANT 10ML TOP ONE (17:32)
[2025-04-01] MEDS ORDERED: ceFAZolin 330 MG/ML 1 GM VIAL ONE ×3 (17:40→17:42)
[2025-04-01] MEDS ORDERED: SUGAMMADEX SODIUM 200 MG/2 ML VIAL IV ONE (17:46)
[2025-04-01] MEDS: BUPIVACAINE 0.5 % 5 MG/1 ML MPF 30ML VIAL ONE (18:07)
--- NOTE | 2025-04-01 18:54 | Operative Report ---
PG Post Operative Report Pre & Post Diagnosis Operation Date: 04/01/25 12:05 Pre-Op Diagnosis: Pelvic Mass, Prostatic Mass, Elevated PSA, Prostatic Intrapithelial Neoplasia Post-Op Diagnosis: Pelvic Mass I identified the patient and participated in the time-out.: Yes Procedure Operation Date: 04/01/25 12:05 Actual Procedures Robotic Assisted Laparoscopic Excision of Pelvic Mass; Cystoscopy, bilateral stent placement/exchange Complex closure/repair of bladder. Repair of bladder neck, and complex closure/repair of prostate/urethra. Extensive lysis of adhesions. - Kenroy Morgan, Surgeon Kenroy Morgan, II, DO [employer] FLYNN Estimated Blood Loss 200 Findings Consistent with Post-Op Diagnosis Large masslike structure in the pelvis taking a majority of the pelvic inlet. Mass found to be combination of cystic and solid mass. Significant adhesions throughout the sigmoid colon and lower pelvis with severe adhesion of the pelvic mass to the pelvic sidewalls, the perirectal tissue, the bladder, and the posterior prostate. Mass continuous with the prostate involving a major portion of the prostatic urethra along the posterior wall and involvement of the base of the bladder/bladder neck. Additionally the vas deferens appeared to insert into the mass bilaterally and seminal vesicles were unable to be identified. Bilateral stents in good position which were exchanged after dissection without issue. No injury or area of concern involving the trigone bladder nor ureters bilaterally. Specimens 1. Fluid from cystic mass for cytology 2. Pelvic mass 3. Frozen specimen - posterior base of resection of pelvic mass. Drains 19 John Drain 20 Fr Silicone Johnson catheter. Bilateral 6 Uzbek multilength stents Anesthesia Type General Complications none Disposition Disposition: Recovery Room Indications Patient with extremely large pelvic mass causing considerable obstructive issues and suspicious based on appearance. Had undergone previous biopsies and resections which did not conclusively find source or cause of mass.. Risk and benefits were discussed at length. Patient elected to undergo robotic assisted laparoscopic removal and excision of pelvic mass. Due to complex nature of pelvic mass extensive conversation preoperatively with preoperative planning for possible need for further intervention during procedure including possible need for further resection or more considerable intervention. Patient had been agreeable. Description of Procedure The patient was brought to the operative suite and placed under general endotracheal intubation anesthesia in the supine position. The patient was transferred to the dorsal lithotomy position. At this point, the patient prepped and draped in the usual sterile fashion and a timeout was completed. Preoperative antibiotics of Ancef 3 grams had been given. NORMA's and SCD's were placed on the patient's lower extremities. A catheter was placed using sterile technique. With the time out completed the patient was placed into Trendelenburg and the skin at the umbilicus was anesthetized. A small incision was made superior to the umbilicus. A Varess Needle was placed and confirmed to be in the abdominal cavity. Water drop test passed. The Abdominal cavity was insufflated to 15 mmHG. The camera port was then placed. A laparoscopic camera was placed into the port and the abdominal cavity inspected. No concerning features were noted. At this point, the skin was marked for port placement and 8mm working ports were placed. The skin was anesthetized down to fascia and an approx 1cm incision was made to place the 3 x 8mm ports. A 12 mm and 5 mm assistant news director ports were also placed in similar fashion under direct visualization. The patient was transferred into steep Trendelenburg position and the legs lowered. The robot was positioned and docked. The camera was placed and all trocars were positioned under direct visualization. GEE Sharpe was integral in port placement, camera utilization, and docking procedure. She remained in sterile attire and then proceeded to assist the remainder of the case. At this point, I transitioned to the robotic console. At this point, the sigmoid colon was mobilized superiorly and the pelvis assessed. Adhesions were freed to allow mobilization. There were extensive adhesions discovered along the sigmoid colon and pelvic wall. Additionally adhesions small bowel were noted along the right pelvic wall and lateral wall. These additionally had to be freed in order to allow a good area of dissection. Extensive lysis of adhesion with significant time for dissection and lysis. Approx 30 minutes for extensive lysis of adhesions prior to moving forward. The pelvic mass was easily identified. On further inspection it appeared to take up the majority of the base and of the pelvis. The mass appeared to come off posteriorly where there was significant adhesions noted throughout the area as well as significant edematous changes were noted. The ureters bilaterally were able to be identified with their stents in position. They did appear to go near proximity to the mass but did not appear to involve the mass. Care was taken throughout the entire process during dissection moving forward to monitor the ureters. Additionally it appeared that the vas deferens coming from the bilateral inguinal canals appeared to insert into the area that the mass occupied. The peritoneum in the midline was opened between rectum and bladder and the mass further exposed. Starting on the anterior surface and moving posteriorly and inferiorly the mass was slowly dissected. Care was taken to try to attempt to remove any surroundin g tissue that was not necessary. There was significant edematous changes within the tissue surrounding the mass. Additionally there were numerous ancillary small vessels that were noted. These were found to have some areas of bleeding and irritation. Dissection was taken as inferiorly as possible before it became apparent that the mass appeared to be projecting from the posterior portion of the prostate. Additionally as it got closer to the prostate there was significantly more adhesions to the bladder. Blunt dissection as well as sharp dissection were utilized in order to dissect the area free. The insertion of the ureters were able to be noted into the bladder. This appeared to be free from where the mass was attached. Care was taken to dissect slowly around the areas closest to the ureters. No significant injury or other problems were discovered during this dissection process. During the dissection it also became apparent that the vas deferens were inserting into what looked to be the mass or the structure involving the mass. The vas deferens on each side were clipped laterally and freed this allowed the portions of the vas deferens to be taken with the specimen and to assist with dissection. The posterior edge was then dissected. As it moved down along the rectum once again there was severe adhesions. Significant adhesion and scarring was noted towards the most inferior portion along the mass on the posterior portion. This is likely the areas of previous biopsies. Extensive dissection was completed. Care was taken to monitor closely during this dissection process. During the dissection of the posterior portion it became apparent that the major portion of the mass was fluid-filled. We even with careful dissection there was some minor areas that appeared to be very thin-walled and close to rupturing. At this point it was decided to drain and aspirate the cyst completely in order to assist with both dissection as well as to manage the fluid internal and to gain a sample. The cystic cavity was then opened. This was done both anteriorly and posteriorly. These 2 chambers did appear to be continuous. Fluid was aspirated and sent. The rest was irrigated off. A significant amount of fluid was able to be removed from the cystic cavity. Once the cystic cavity was drained it became apparent that there was also a large masslike component. This appeared to be at least 9 cm in size and after drainage, was more obviously appearing to attach to and involve the base of the prostate. Moving towards the prostate further blunt dissection and cautery was completed. The lateral edges were then dissected. These were dissected with blunt technique. Once again multiple areas of edematous changes as well as small vessels were noted. He[place]alock Weck clips were utilized on the larger appearing vessels. Additionally there was some more significant dissection taken along the base of the bladder on its connection points to the mass. This did appear to be severely adhered to portions of the detrusor muscle. Care was taken to dissect around this however there did appear to be some portions that were dissected with the mass. There were no sign of any injury or problems along the bladder. The mass was isolated all the way down to its attachment site which appeared to be at the base of the prostate with conjunction at the bladder neck. In dissecting the mass free the cystic cavity was further opened and the nodular components were able to be dissected free and doing so it was apparent that this was involving the prostatic urethra and bladder neck. At this point it was completely dissected from the attachment and able to be removed from the pelvis in total allowing then further examination of the area. There was what appeared to be regrowth within the prostatic urethra. No mass or tumor was noted within the channel. The catheter was seen in good position going into the bladder. It did not appear that there was any injury to the bladder and the only area of considerable opening was at the bladder neck continuing a small area into the trigone on the left side. The entire dissection bed was inspected. There did appear to be possible residual tissue in the portion attached to the most distal end of the rectum. This was the area that was the thickest tissue with the most scarring. Due to this irregularity as well as a plan to have a frozen specimen to confirm no malignancy was being left it was dissected off of the perirectal tissues. This was sent as a frozen specimen. After evaluation with the pathologist no malignancy was discovered. The tissue was consistent with the previous biopsies and resections of the mass. The entire resection area was inspected. Multiple small vessels were cauterized. Hemostatic agent was placed in the region. No areas of injury or bleeding was noted. Care was taken to examine the perirectal tissues. A probe was placed and no injuries or other issues were observed. The bladder neck and urethra were further assessed. At this point it was decided to switch to cystoscopy in order to exchange the stents confirm no injuries of the ureters bilaterally and further evaluate the prostatic urethra and bladder. The robot was maintained with the laparoscopic camera being utilized by GEE Sharpe. This allowed monitoring of the ureters during manipulation. The scope was able to advance. A opening was appreciated in the prostatic capsule and prostatic urethra. This was further assessed. Based on the appearance it did appear that the capsule was able to be closed. And at this point the robot was utilized to close the urethra and capsule with a running barbed suture. The urethral tissue was able to be reapproximated. The capsule was also able to be reapproximated. A good closure was appreciated. The scope was then utilized once again by myself going along the urethra. There did appear to be significant closure of the tissues. The bladder neck was further assessed. Additionally the bladder was noted to have a small area of opening as well. The ureters bilaterally however had stents in position and did not show any signs of trauma or injury. The remainder of the bladder appeared to be free of any injury or other problems. The stent on each side was able to be grasped after a wire was placed. The stents were removed. The wire on the left side was not as easy to advance. This was removed and placed through the stent itself. With stents on each side 6 Uzbek double-J ureteral stents were placed bilaterally. These were placed without major issue. They did appear to be sitting well within the bladder. A KUB will can be completed after the case to confirm their positioning. The bladder was inspected a final time. No major issues or areas of concern. The area of cystotomy that required further repair was noted and able to be identified for closure. No major areas of bleeding or other problems. A wire was then placed into the bladder and the scope removed. A 20 Uzbek silicone catheter was placed over the wire into the bladder and confirmed to be in good position. This was then elevated to 30 cc with the balloon and set to drainage. Attention was then taken back to the robotic portion of the procedure. The bladder neck and bladder areas were closed using a running barbed suture. The Periprostatic tissues and surrounding sidewall tissue were then closed. These were reapproximated with a running barbed suture. After closure of these areas in multiple layer, the area was inspected. Some smaller vessels once again had to be fulgurated. No major areas of bleeding were noted. The area appeared to be adequately closed. The ureters with the stents in place were identified and appeared to have no major issues intra-abdominally. A leak test was completed of the bladder without any evidence of issues. No signs of leakage or other problems. The bladder did appear to fill appropriately without major problem. The catheter was then set to drainage. The entire dissection space was inspected one final time. No bleeding or injuries or areas of concern were noted. No tumor or other concerning features were noted. The tumor had been collected and placed into the Endocatch bag. Further hemostatic agent Tisseel and Floseal were placed. Surgicel sheets had also been placed. The peritoneum was then closed using running barbed 3- O suture. Good closure was achieved. No major issues or concerns were noted at this point. There was considerably more space in the pelvis after the removal of the mass. No major bleeding or other problems were noted. At this point, the robot was undocked and moved away from the patient. The patient was taken out of Trendelenberg. The port sites were all assessed laparoscopically. The endoscopic bag was moved into the midline port. The 12 mm port site was used to place a pelvic drain. A 19 John drain was selected. It was placed into the laparoscopic port. It was positioned down in the dependent portion of the pelvis. The drain had been adequately placed and was inserted far enough to be passed the dotted line. A 2-0 silk suture was then used to secure the drain to the skin. The other ports were assessed and no issues observed. The ports were then all removed. The umbilical incision was opened further exposing fascia which was then opened in order to removed the pelvic mass contained in the bag. This was then sent for pathologic analysis. A running 1-0 PDS suture was used to close fascia. The skin at each site was closed with a stapling device. The area was cleaned and bandages placed on each incision. The patient was cleaned and bandaged, aroused from anesthesia, and transferred to the pacu in stable condition having tolerated the procedure well with no complications. I was present and participated in all aspects of the procedure. eDll FLYNN was critical in the portions as mentioned above. Will plan to observe postoperatively and monitor. Johnson to be remain in place until followup likely 10-14 days. Will likely plan to maintain drain for next few days and monitor output before removal. Will maintain stents until patient has been reassessed after healing. Will need to await pathology to discuss potential next steps depending on results. I attest to the content of the Intraoperative Record and any orders documented therein. Any exceptions are noted below.
--- NOTE | 2025-04-01 19:22 | XRay Report ---
EXAMINATION: X-ray KUB/abdomen 1 view CLINICAL HISTORY: Stent placement, postop PRIORS: 12/24/2024 TECHNIQUE: Single frontal view abdomen FINDINGS: Bilateral ureteral stents present, unchanged. Multiple skin toshia noted projecting on the abdomen, appearing in the interval. No dilated loops of bowel, calcifications or extraluminal gas identified. A large amount of formed stool present in the colon. Osseous structures obscured. Numerous gallstones present. IMPRESSION: Bilateral ureteral stents, unchanged with skin toshia present and no radiographic evidence of an acute complication. Close clinical correlation suggested. Electronically signed by Leanne Mcneil 04-01-2025 7:22 PM
--- NOTE | 2025-04-01 19:24 | Anesthesiology Progress Note ---
Date of Service April 01, 2025 Anesthesia Post Procedure Vital Signs Vital Signs: Temp Pulse Pulse Resp BP Pulse Ox O2 Del Method 04/01/25 19:10 36.4 C L 90 13 89/54 L 93 Oxymask 04/01/25 19:00 80 12 95/55 L 94 Oxymask 04/01/25 18:50 90 12 90/60 L 97 Oxymask 04/01/25 18:40 69 13 97/66 L 99 Oxymask 04/01/25 18:31 36.2 C L 102 H 14 80/48 L 96 Oxymask 04/01/25 10:34 36.5 C 79 18 125/89 95 Room Air O2 Flow Rate 04/01/25 19:10 3 04/01/25 19:00 3 04/01/25 18:50 5 04/01/25 18:40 9 04/01/25 18:31 9 04/01/25 10:34 Transfer of Care Handoff Completed per policy Notes Mental Status: alert / awake / arousable Patient Amnestic to Procedure: Yes Nausea / Vomiting: adequately controlled Pain: adequately controlled Airway Patency, RR, SpO2: stable & adequate BP & HR: stable & adequate Hydration State: stable & adequate Anesthetic Complications: no major complications apparent
[2025-04-01] MEDS ORDERED: ALBUMIN HUMAN 5% 12.5 GM/250 ML VIAL IV ONE (19:34)
[2025-04-01 19:59] LABS: Hematocrit (blood only) 27.2 % (42.0-52.0); Hemoglobin 8.2 g/dl (14.0-18.0); Mean Corpuscular Hemoglobin 25.4 pg (25.0-34.0); Mean Corpuscular Volume 84.2 fL (80.0-100.0); Platelet Count 227 K/uL (130-400); RDW Standard Deviation 43.9 fL (36.4-46.3); Red Blood Count 3.23 M/uL (4.70-6.10); White Blood Count 11.60 K/ul (4.8-10.8)
[2025-04-01 20:18] LABS: Anion Gap 7.0 (3-11); Blood Urea Nitrogen 19.0 mg/dl (6-23); Calcium 7.9 mg/dl (8.6-10.3); Carbon Dioxide 21.0 mmol/L (21-32); Chloride 112.0 mmol/L (98-107); Creatinine Clr Calc Pharmacy 72.5 ml/min; Glucose 161.0 mg/dl (70-99(Fasting)); Potassium 4.0 mmol/L (3.5-5.1); Sodium 140.0 mmol/L (136-145)
[2025-04-01 20:21] LABS: Immature Granulocytes # (auto) 0.05 K/uL (0.01-0.20); Immature Granulocytes % (auto) 0.4 %
[2025-04-01] MEDS ORDERED: SODIUM CHLORIDE 0.9% 100 ML IV PRN (20:33)
--- NOTE | 2025-04-01 21:12 | Communication Note ---
Date of Service: April 01, 2025 Patient seen and evaluated in the PACU recovery area at approximately 2039 secondary to hypotension. Postoperatively patient has had hypotension. Was having lower urinary output. Have been coordinating with the PACU nurses, JACEY, and anesthesia team postoperatively. Patient is postoperative hemoglobin came back at 8.2. Preoperatively had hemoglobin at 10 last week. Drop likely expected with surgical intervention and operative IV hydration however with hypotension and lower urine output after discussion with anesthesia had elected to move forward with blood transfusion. Patient had been agreeable. Patient currently resting comfortably. Somnolent as expected after major surgery but responding normally and appropriately to questions. There was also concern about possible issues with TATIANA drain. This was evaluated by myself has a small crack in the tubing near the connection point with the bulb. The tubing was trimmed by myself and reattached and is no longer having further issue. Has been putting out serosanguineous drainage with little issue. Catheter was also reevaluated. Did appear to be slightly positional as position changes did show a significant output of urine. 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 Likely contributing to the positional nature of the catheter. The catheter balloon had also been overfilled with the procedure. Approximately 10 cc were drawn off of the balloon by myself to accommodate the bladder better. The catheter remained in good position and was easily manipulated with the removal of the excess fluid in the balloon. Did have over approximately 20 minutes have approximately 50 cc of urine production actively draining along the tubing. Urine output does seem to be improving and may have been positional as noted above. Creatinine is at patient's typical baseline. Had KUB completed which was reviewed by myself. Stents appear to be in appropriate position with pelvic drain additionally being in good position. With patient's persistent hypotension and plan for transfusion we will plan to send patient to PCU instead of med/tele. Patient does have chronic A-fib which does appear to be stable on the telemetry reading. Patient is not tachycardic. He is responding appropriately. Does not appear to have significant issues currently. And is currently afebrile. Will likely maintain antibiotic coverage. Referral for medical evaluation with the hospitalist had already been placed. Appreciate their assistance in medical management moving forward.
[2025-04-01] MEDS ORDERED: ACETAMINOPHEN 325 MG TAB PO PRN (22:08)
[2025-04-01] MEDS ORDERED: MoRPHine SULFATE 2 MG/ML CARP IV PRN (22:08)
--- NOTE | 2025-04-01 22:33 | Hospitalist Consultation ---
Date of Consultation April 01, 2025 Assessment & Plan (1) Pelvic mass: (2) Atrial fibrillation: (3) HTN (hypertension): (4) Hyperlipidemia: Supervising Physician Co-Signing Physician Notes 55-year-old male status post excision of large pelvic mass performed today. Patient doing well, no immediate complications identified. He was transiently hypotensive in the ER. Hemoglobin = 8.2. #Pelvic massstatus post surgical excision Patient admitted to PCU Pain control, antiemetics and bowel regimen per primary team Follow pathology results Maintain Johnson catheter for now Drain management per protocol Strict monitoring of intake and output LR at 100 mL/h ongoing #Acute blood loss anemiapatient hypotensive postoperatively. Likely secondary to anesthesia effects as well as acute blood loss anemia from surgery. Hemoglobin = 8.2. Patient has received 1 unit PRBCs thus far with improvement in blood pressure. Second unit transfusing. Check hemoglobin in the morning. Hypertensionpatient with history of such. Blood pressure has been low. Order placed for patient's home medications, amlodipine and metoprolol. Holding parameters in place and should not be given should patient's blood pressure be below 100 Continue to monitor blood pressure #Hyperlipidemia Continue atorvastatin 10 mg p.o. nightly #Anxiety/mental health Continue duloxetine 60 mg p.o. nightly Continue Remeron 30 mg p.o. nightly Continue Topamax 50 mg p.o. nightly History of Present Illness Reason for Consultation: medical management Attending Physician: Kenroy Morgan, II, DO History of Present Illness 55-year-old male with history of hypertension, hyperlipidemia, atrial fibrillation and depression status post robotic assisted laparoscopic excision of pelvic mass, cystoscopy with bilateral stent placement performed today 04/01/[address] Kenroy Morgan. patient has been following with urology for a known pelvic mass. He has had multiple biopsies with and aspirations with no malignancy identified. Patient went to the OR today for surgical removal of the mass. He was found to have a large, masslike structure in the pelvis taken the majority of the pelvic inlet. Cystic and solid with significant adhesions throughout the sigmoid colon and lower pelvis. Surgery performed under general anesthesia. This was estimated blood loss 200 mL. In recovery, patient was transiently hypotensive with low urine output. He was found to have a low hemoglobin of 8.2. PRBCs ordered Patient seen in PCU bed 4 [id number]. He is somnolent but arousable. Answer questions appropriately. Presently denies any pain. No additional complaints at this time. No p.o. intake as of yet, no bowel movement. Johnson is in place with a small amount of clear, yellow urine in the bag and tubing Allergies Allergy/AdvReac Type Severity Reaction Status Date / Time iodine Allergy Unknown Swelling Verified 04/01/25 10:09 of Lip/Tongue/Throat Penicillins Allergy Unknown Swelling Verified 04/01/25 10:09 of Lip/Tongue/Throat shellfish derived Allergy Unknown Swelling Verified 04/01/25 10:09 of Lip/Tongue/Throat bacitracin AdvReac Unknown Redness of Verified 04/01/25 10:09 [From Neosporin Skin ([id number])] neomycin AdvReac Unknown Redness of Verified 04/01/25 10:09 [From Neosporin Skin ([id number])] polymyxin B AdvReac Unknown Redness of Verified 04/01/25 10:09 [From Neosporin Skin ([id number])] Seafood Allergy Unknown Swelling Uncoded 04/01/25 10:09 of Lip/Tongue/Throat [place] AdvReac Contraindicated Uncoded 04/01/25 10:09 for pt. per [facility] record Home Medications Medication Instructions Recorded Confirmed Type amlodipine 10 mg tablet 10 mg PO QAM 08/16/20 04/01/25 History atorvastatin 10 mg tablet 10 mg PO HS 10/01/23 04/01/25 History duloxetine 60 mg capsule,delayed 60 mg PO HS 10/01/23 04/01/25 History release sprinkle mirtazapine 30 mg tablet 30 mg PO HS 10/09/24 04/01/25 History topiramate 50 mg tablet 50 mg PO HS 10/09/24 04/01/25 History acetaminophen 500 mg tablet 1,000 mg PO BID 03/24/25 04/01/25 History (Acetaminophen Extra Strength) ascorbic acid (vitamin C) 1,000 mg 1,000 mg PO BID 03/24/25 04/01/25 History tablet (Vitamin C) ibuprofen 600 mg tablet 600 mg PO TID 03/24/25 04/01/25 History metoprolol tartrate 37.5 mg tablet 37.5 mg PO BID 03/24/25 04/01/25 History warfarin 4 mg tablet 4 mg PO DAILY 03/24/25 04/01/25 History Patient History Medical History Inmate in correctional facility Personal history of transient ischemic attack (TIA), and cerebral infarction without residual deficits Noted per remote [facility] records dating back to 2020 Other intervertebral disc degeneration, lumbar region Hypertension Hyperlipidemia Elevated PSA Disease of anus and rectum, unspecified Atrial fibrillation on warfarin Anxiety disorder Depressive disorder BPH loc w/o ur obs/LUTS Surgical History S/P TURP (10/22/24) TURP + resection of prostate mass + aspiration of prostate cyst + rectal exam cystoscopy + bilateral stent placements + bilateral retrograde pyelogram + bladder fulgeration -- Dr Morgan at [facility] Hx of cystoscopy cysto, prostate bx, transrectal US 10/10/23: GA: LMA#5 iGel Surgical history unknown Previous surgical history unknown until procedure at [facility] 2023 Family History Father Dementia Mother Heart disease Denies family history of Prostate cancer Social History Smoking Status: Never smoker Hx Alcohol Use: No Hx Substance Use: No Preferred Language: [place] Communication Ability: Effective Communication Ability Comment: unknown, inmate of [facility] [employer] Relationship Manager Required: No Beliefs That Will Affect Care: None Current Living Situation: Other Current Living Situation Comment: APR Other Information That Helps Us Care for You: No Feels Safe at Home: Yes Safety Concerns: Feels Safe At This Time Assistive Devices: None Review of Systems Review of Systems: All systems reviewed & are unremarkable except as noted in HPI & below Physical Exam Physical Exam: General: patient resting comfortably, Somnolent, arousable HEENT: NC/AT, PERRL, EOMI, anicteric sclera, conjunctiva without injection, external ear normal to inspection and nontender, nares patent, moist mucus membranes, dentition intact, no oropharyngeal lesions, neck supple, trachea midline, no LAD, no thyromegaly, no JVD Heart: +S1/S2, regular, no m/r/g Lungs: equal air entry bilaterally, no rales/rhonchi/wheezes Abd: diminished bowel sounds, soft, mildly distended, abdominal dressing in place, clean/dry/intact, TATIANA drain with scant amount of serosanguineous fluid in bulb Ext: warm, 2+ pulses in UE/LE bilaterally, no clubbing/cyanosis or edema Johnson in place with scant amount of clear, yellow urine in the bag and tubing Neuro: nonfocal, patient AA&O x 4, speech intact, no facial droop, moving all extremities on command with equal strength 5/5 Results & Data Results & Data Vital Signs (Past 12 Hours) Vital Signs Temp Pulse Pulse Resp BP BP Pulse Ox 04/01/25 22:00 35.5 C L 82 12 93/60 L 93 04/01/25 21:30 73 12 93/62 L 95 04/01/25 21:20 36.4 C L 65 12 91/56 L 95 04/01/25 21:10 75 14 84/60 L 95 04/01/25 21:00 78 14 83/53 L 96 04/01/25 20:50 35.7 C L 72 12 84/60 L 94 04/01/25 20:40 35.7 C L 87 12 87/62 L 93 04/01/25 20:30 70 12 82/56 L 93 04/01/25 20:10 77 12 86/63 L 95 04/01/25 20:00 68 12 89/63 L 96 04/01/25 19:55 81 12 86/59 L 96 04/01/25 19:45 82 12 89/62 L 95 04/01/25 19:35 81 12 89/62 L 93 04/01/25 19:30 78 12 79/53 L 93 04/01/25 19:20 74 12 81/54 L 93 04/01/25 19:10 36.4 C L 90 13 89/54 L 93 04/01/25 19:00 80 12 95/55 L 94 04/01/25 18:50 90 12 90/60 L 97 04/01/25 18:40 69 13 97/66 L 99 04/01/25 18:31 36.2 C L 102 H 14 80/48 L 96 04/01/25 10:34 36.5 C 79 18 125/89 95 O2 Del Method O2 Flow Rate 04/01/25 22:00 Nasal Cannula 3 04/01/25 21:30 Nasal Cannula 3 04/01/25 21:20 Nasal Cannula 3 04/01/25 21:10 Nasal Cannula 3 04/01/25 21:00 Nasal Cannula 3 04/01/25 20:50 Nasal Cannula 3 04/01/25 20:40 Nasal Cannula 3 04/01/25 20:30 Nasal Cannula 3 04/01/25 20:10 Nasal Cannula 3 04/01/25 20:00 Nasal Cannula 3 04/01/25 19:55 Nasal Cannula 3 04/01/25 19:45 Nasal Cannula 3 04/01/25 19:35 Nasal Cannula 3 04/01/25 19:30 Nasal Cannula 3 04/01/25 19:20 Nasal Cannula 3 04/01/25 19:10 Oxymask 3 04/01/25 19:00 Oxymask 3 04/01/25 18:50 Oxymask 5 04/01/25 18:40 Oxymask 9 04/01/25 18:31 Oxymask 9 04/01/25 10:34 Room Air Laboratory Results Laboratory Results WBC 11.60 K/ul (4.8-10.8) H 04/01/25 19:11 RBC 3.23 M/uL (4.70-6.10) L 04/01/25 19:11 Hgb 8.2 g/dl (14.0-18.0) L 04/01/25 19:11 Hct 27.2 % (42.0-52.0) L 04/01/25 19:11 MCV 84.2 fL (80.0-100.0) 04/01/25 19:11 MCH 25.4 pg (25.0-34.0) 04/01/25 19:11 MCHC 30.1 g/dL (32.0-36.0) L 04/01/25 19:11 RDW Std Deviation 43.9 fL (36.4-46.3) 04/01/25 19:11 RDW Coeff of Tim 14.3 % (11.5-14.5) 04/01/25 19:11 Plt Count 227 K/uL (130-400) 04/01/25 19:11 MPV 8.6 fL (9.4-12.4) L 04/01/25 19:11 Immature Gran % (Auto) 0.4 % 04/01/25 19:11 Neut % (Auto) 92.6 % 04/01/25 19:11 Lymph % (Auto) 5.9 % 04/01/25 19:11 [place] % (Auto) 0.9 % 04/01/25 19:11 Eos % (Auto) 0.0 % 04/01/25 19:11 Baso % (Auto) 0.2 % 04/01/25 19:11 Neut # (Auto) 10.75 K/uL (1.40-6.50) H 04/01/25 19:11 Lymph # (Auto) 0.68 K/uL (1.20-3.40) L 04/01/25 19:11 [place] # (Auto) 0.10 K/uL (0.11-0.59) L 04/01/25 19:11 Eos # (Auto) 0.00 K/uL (0.00-0.50) 04/01/25 19:11 Baso # (Auto) 0.02 K/uL (0.00-0.20) 04/01/25 19:11 Immature Gran # (Auto) 0.05 K/uL (0.01-0.20) 04/01/25 19:11 PT 13.8 Seconds (9.0-12.0) H 04/01/25 09:52 INR 1.3 (0.9-1.1) H 04/01/25 09:52 APTT 35 Seconds (21-31) H 04/01/25 09:52 PTT Ratio 1.3 04/01/25 09:52 Sodium 140 mmol/L (136-145) 04/01/25 19:11 Potassium 4.0 mmol/L (3.5-5.1) 04/01/25 19:11 Chloride 112 mmol/L (98-107) H 04/01/25 19:11 Carbon Dioxide 21 mmol/L (21-32) 04/01/25 19:11 Anion Gap 7 (3-11) 04/01/25 19:11 BUN 19 mg/dl (6-23) 04/01/25 19:11 Creatinine 1.33 mg/dl (0.6-1.4) 04/01/25 19:11 Est Cr Clr Drug Dosing 72.5 ml/min 04/01/25 19:11 eGFR 62.73 04/01/25 19:11 BUN/Creatinine Ratio 14.3 (10-20) 04/01/25 19:11 Glucose 161 mg/dl (70-99(Fasting)) H 04/01/25 19:11 Calcium 7.9 mg/dl (8.6-10.3) L 04/01/25 19:11 SARS-CoV-2, RNA, NAAT NEGATIVE (NEGATIVE) 04/01/25 Unknown Blood Type O Negative 04/01/25 21:29 Antibody Screen NEGATIVE 04/01/25 21:29 Crossmatch See Detail 04/01/25 21:29 Impressions KUB X-Ray 04/01/25 18:53 EXAMINATION: X-ray KUB/abdomen 1 view CLINICAL HISTORY: Stent placement, postop PRIORS: 12/24/2024 TECHNIQUE: Single frontal view abdomen FINDINGS: Bilateral ureteral stents present, unchanged. Multiple skin toshia noted projecting on the abdomen, appearing in the interval. No dilated loops of bowel, calcifications or extraluminal gas identified. A large amount of formed stool present in the colon. Osseous structures obscured. Numerous gallstones present. IMPRESSION: Bilateral ureteral stents, unchanged with skin toshia present and no radiographic evidence of an acute complication. Close clinical correlation suggested. Electronically signed by Leanne Mcneil 04-01-2025 7:22 PM PG Care Time/CCT Total # of Minutes Spent Total Time Spent with Patient: Total time spent is greater than 50% in coordination of care (as documented) at patient's floor/unit and/or counseling patient: Coding Level of Care Code 91804 IN/OBS CONSULT LVL 3,45M Diagnoses Pelvic mass R19.00 Atrial fibrillation I48.91 HTN (hypertension) I10 Hyperlipidemia E78.5
[2025-04-01] MEDS: METOPROLOL TARTRATE 25 MG TAB PO SCH (23:27)
[2025-04-01] MEDS: ATORVASTATIN 10 MG TAB PO SCH (23:28)
[2025-04-01] MEDS: DOCUSATE SODIUM 100 MG CAP PO SCH (23:28)
[2025-04-01] MEDS: TOPIRAMATE 50 MG TAB PO SCH (23:28)
[2025-04-01] MEDS: LACTATED RINGER'S 1,000 ML IV SCH (23:29)
[2025-04-01] MEDS: MIRTAZAPINE TAB 15 MG TAB PO SCH (23:58)
--- NOTE | 2025-04-02 08:40 | Urology Progress Note ---
Date of Service April 02, 2025 Assessment & Plan (1) Pelvic mass: Plan: - Pt POD#1 s/p Robotic Assisted Laparoscopic Excision of Pelvic Mass; Cystoscopy, bilateral stent placement/exchange Complex closure/repair of bladder. Repair of bladder neck, and complex closure/repair of prostate/urethra. Extensive lysis of adhesions. - Patient afebrile overnight - He had some postoperative hypotension, which has resolved - Postop lab work showed hemoglobin of 8.2, he received 2 units of PRBCs - Labs today reviewedcreatinine 1.18, WBC 13.17, hemoglobin 9.8 - Tolerating bilateral ureteral stents with minimal bother - Incisions appropriate - Advance diet as tolerated - Will dc IV fluids - TATIANA with serosanguinous drainage, maintain for now - Johnson patent and draining appropriately- urine output has improved - Plan to maintain Johnson catheter until urology follow-up - Anticipate discharge today or tomorrow presuming he continues to progress as expected Admission and Anticipated Discharge Date Admission Date: April 01, 2025 Subjective Patient seen and examined at bedside this morning. 2 guards in room as well as RN. He is awake and alert, no apparent distress. Some postoperative hypotension. Hemoglobin 8.2 postoperatively. He was given 2 units of PRBCs. Labs collected this morning, pending. Johnson intact and draining yellow urine. TATIANA with serosanguineous output. He reports some mild incisional discomfort. No fever or chills overnight. Passing flatus. Review of Systems Constitutional: as per Subjective / HPI Genitourinary: + as per Subjective / HPI Physical Exam Constitutional: no acute distress Respiratory: normal respiratory effort; no respiratory distress and no labored breathing Gastrointestinal (Abdomen): Inspection/Auscultation: abdomen normal to inspection Musculoskeletal: Head/Neck/Chest: normocephalic Skin: Surgical incisions clean dry and intact with toshia. TATIANA drain with serosanguineous output. Neurologic: moves all extremities and awake Psychiatric: Orientation: alert and oriented x 3 Genitourinary: Johnson patent and draining yellow urine Results & Data Vital Signs (Past 12 Hours) Vital Signs Temp Pulse Pulse Pulse Resp BP BP 04/02/25 08:20 36.8 C 69 18 127/89 04/02/25 05:54 37.0 C 100 H 18 115/72 04/02/25 05:31 37.0 C 90 18 117/78 04/02/25 04:31 36.8 C 87 18 126/89 04/02/25 03:31 36.6 C 93 H 16 118/82 04/02/25 03:01 36.6 C 95 H 16 119/83 04/02/25 02:46 36.7 C 97 H 16 114/71 04/02/25 02:45 36.7 C 97 H 16 114/71 04/02/25 02:30 36.4 C L 91 H 16 109/73 04/02/25 01:32 36.5 C 87 12 104/76 04/01/25 23:50 36.4 C L 80 16 101/65 04/01/25 23:20 36.4 C L 82 16 103/69 04/01/25 23:06 36.3 C L 81 16 104/67 04/01/25 22:49 36.4 C L 80 12 94/64 L 04/01/25 22:08 04/01/25 22:00 35.5 C L 82 12 93/60 L 04/01/25 21:30 73 12 04/01/25 21:20 36.4 C L 65 12 04/01/25 21:10 75 14 04/01/25 21:00 78 14 04/01/25 20:50 35.7 C L 72 12 04/01/25 20:40 35.7 C L 87 12 BP Pulse Ox O2 Del Method O2 Flow Rate 04/02/25 08:20 97 Room Air 04/02/25 05:54 97 04/02/25 05:31 97 3 04/02/25 04:31 95 04/02/25 03:31 95 3 04/02/25 03:01 97 3 04/02/25 02:46 97 3 04/02/25 02:45 97 3 04/02/25 02:30 96 04/02/25 01:32 97 04/01/25 23:50 96 3 04/01/25 23:20 97 3 04/01/25 23:06 98 3 04/01/25 22:49 98 3 04/01/25 22:08 Nasal Cannula 3 04/01/25 22:00 93 Nasal Cannula 3 04/01/25 21:30 93/62 L 95 Nasal Cannula 3 04/01/25 21:20 91/56 L 95 Nasal Cannula 3 04/01/25 21:10 84/60 L 95 Nasal Cannula 3 04/01/25 21:00 83/53 L 96 Nasal Cannula 3 04/01/25 20:50 84/60 L 94 Nasal Cannula 3 04/01/25 20:40 87/62 L 93 Nasal Cannula 3 PG Care Time/CCT Total # of Minutes Spent Total Time Spent with Patient: Total time spent is greater than 50% in coordination of care (as documented) at patient's floor/unit and/or counseling patient: Coding Level of Care Code None Diagnoses Pelvic mass R19.00
[2025-04-02 08:41] LABS: Hematocrit (blood only) 30.7 % (42.0-52.0); Hemoglobin 9.6 g/dl (14.0-18.0)
[2025-04-02] MEDS: HEPARIN SOD 5,000 UNIT/0.5 ML VIAL SQ SCH (08:44)
[2025-04-02 08:49] LABS: Hematocrit (blood only) 30.4 % (42.0-52.0); Hemoglobin 9.8 g/dl (14.0-18.0); Immature Granulocytes # (auto) 0.06 K/uL (0.01-0.20); Immature Granulocytes % (auto) 0.5 %; Mean Corpuscular Hemoglobin 27.1 pg (25.0-34.0); Mean Corpuscular Volume 84.2 fL (80.0-100.0); Platelet Count 213 K/uL (130-400); RDW Standard Deviation 43.8 fL (36.4-46.3); Red Blood Count 3.61 M/uL (4.70-6.10); White Blood Count 13.17 K/ul (4.8-10.8)
[2025-04-02 09:02] LABS: Anion Gap 7.0 (3-11); Blood Urea Nitrogen 21.0 mg/dl (6-23); Calcium 8.3 mg/dl (8.6-10.3); Carbon Dioxide 22.0 mmol/L (21-32); Chloride 110.0 mmol/L (98-107); Creatinine Clr Calc Pharmacy 81.7 ml/min; Glucose 145.0 mg/dl (70-99(Fasting)); Potassium 4.4 mmol/L (3.5-5.1); Sodium 139.0 mmol/L (136-145)
--- NOTE | 2025-04-02 11:03 | Hospitalist Progress Note ---
Date of Service April 02, 2025 Assessment & Plan (1) Pelvic mass: Plan: Pain control, antiemetics and bowel regimen per primary team Follow pathology results Maintain Johnson catheter for now -Drain management per protocol Strict monitoring of intake and output LR at 100 mL/h (2) Atrial fibrillation: Plan: -coumadin held post op (3) HTN (hypertension): Plan: -amlodipine, metoprolol (4) Hyperlipidemia: Plan: -atorvastatin Admission and Anticipated Discharge Date Admission Date: April 01, 2025 Subjective No events overnight. Pt resting comfortably in bed. Review of Systems Review of Systems: CONST: Negative for fever, body aches and chills. HENT: Negative for neck pain/stiffness, headache, congestion, sore throat, swelling. EYES: Negative for discharge/pain or vision changes. RESP: Negative for cough/hemoptysis and shortness of breath. CV: Negative chest pain, difficulty breathing, palpitations. ABD: Negative pain, nausea, vomiting. : Negative increase frequency, dysuria, blood in urine or stool. MUSC: Negative for muscle aches, edema. SKIN: Negative rash, lesions/sores. NEURO: Negative headache, dizziness, weakness. Physical Exam Physical Exam: GENERAL APPEARANCE NAD, activity normal for age, well developed/ well nourished, no cyanosis, pallor, or diaphoresis. EYES lids/conjunctiva normal. EARS/NOSE/THROAT Mucous membranes moist, nares normal, lips/teeth normal uvula midline without oral pharyngeal erythema, exudate or swelling TMs normal bilaterally. No lymphangitis/lymphedema. HEAD/NECK normocephalic atraumatic, no facial trauma, neck is supple. RESPIRATORY respiratory effort normal, speaks in full sentences, no tripod position, no accessory muscle use. Lungs clear to auscultation without rhonchi, wheezes, rales CARDIAC Regular rate and rhythm, no edema. ABDOMINAL : abdominal incisions c/d/i, TATIANA drain in place. MUSCLES/EXTREMITIES No abnormal range of motion, no swelling. SKIN Warm, pink and dry. No rashes, dermatoses, petechiae or lesions. NEUROLOGICAL Speech is clear and appropriate. Normal level of consciousness. Gait and coordination are normal. 5/5 strength in all extremities. PSYCH Normal mood and affect. Judgement/competence is appropriate Results & Data Results & Data Vital Signs (Past 12 Hours) Vital Signs Temp Pulse Pulse Resp BP BP Pulse Ox 04/02/25 08:20 36.8 C 69 18 127/89 97 04/02/25 07:00 101 H 04/02/25 05:54 37.0 C 100 H 18 115/72 97 04/02/25 05:31 37.0 C 90 18 117/78 97 04/02/25 04:31 36.8 C 87 18 126/89 95 04/02/25 03:31 36.6 C 93 H 16 118/82 95 04/02/25 03:01 36.6 C 95 H 16 119/83 97 04/02/25 02:46 36.7 C 97 H 16 114/71 97 04/02/25 02:45 36.7 C 97 H 16 114/71 97 04/02/25 02:30 36.4 C L 91 H 16 109/73 96 04/02/25 01:32 36.5 C 87 12 104/76 97 04/01/25 23:50 36.4 C L 80 16 101/65 96 04/01/25 23:20 36.4 C L 82 16 103/69 97 04/01/25 23:06 36.3 C L 81 16 104/67 98 O2 Del Method O2 Flow Rate 04/02/25 08:20 Room Air 04/02/25 07:00 04/02/25 05:54 04/02/25 05:31 3 04/02/25 04:31 04/02/25 03:31 3 04/02/25 03:01 3 04/02/25 02:46 3 04/02/25 02:45 3 04/02/25 02:30 04/02/25 01:32 04/01/25 23:50 3 04/01/25 23:20 3 04/01/25 23:06 3 PG Care Time/CCT Total # of Minutes Spent Total Time Spent with Patient: Total time spent is greater than 50% in coordination of care (as documented) at patient's floor/unit and/or counseling patient: Coding Level of Care Code 11153 SUB INP/OBS CARE 2/35MIN Diagnoses Pelvic mass R19.00 Atrial fibrillation I48.91 HTN (hypertension) I10 Hyperlipidemia E78.5
[2025-04-02 17:23] LABS: Hematocrit (blood only) 29.8 % (42.0-52.0); Hemoglobin 9.6 g/dl (14.0-18.0)
[2025-04-02] MEDS: MIRTAZAPINE TAB 15 MG TAB PO SCH (20:29)
[2025-04-03 06:11] LABS: Hematocrit (blood only) 29.6 % (42.0-52.0); Hemoglobin 9.4 g/dl (14.0-18.0); Immature Granulocytes # (auto) 0.05 K/uL (0.01-0.20); Immature Granulocytes % (auto) 0.4 %; Mean Corpuscular Hemoglobin 26.9 pg (25.0-34.0); Mean Corpuscular Volume 84.8 fL (80.0-100.0); Platelet Count 193 K/uL (130-400); RDW Standard Deviation 44.7 fL (36.4-46.3); Red Blood Count 3.49 M/uL (4.70-6.10); White Blood Count 11.34 K/ul (4.8-10.8)
[2025-04-03 06:29] LABS: Anion Gap 4.0 (3-11); Blood Urea Nitrogen 19.0 mg/dl (6-23); Calcium 8.3 mg/dl (8.6-10.3); Carbon Dioxide 26.0 mmol/L (21-32); Chloride 107.0 mmol/L (98-107); Creatinine Clr Calc Pharmacy 84.5 ml/min; Glucose 89.0 mg/dl (70-99(Fasting)); Potassium 3.8 mmol/L (3.5-5.1); Sodium 137.0 mmol/L (136-145)
--- NOTE | 2025-04-03 10:23 | Hospitalist Progress Note ---
Date of Service April 03, 2025 Assessment & Plan (1) Pelvic mass: Plan: Pain control, antiemetics and bowel regimen per primary team Follow pathology results Maintain Johnson catheter for now -Drain management per protocol Strict monitoring of intake and output LR at 100 mL/h (2) Atrial fibrillation: Plan: -coumadin held post op (3) HTN (hypertension): Plan: -amlodipine, metoprolol (4) Hyperlipidemia: Plan: -atorvastatin Admission and Anticipated Discharge Date Admission Date: April 01, 2025 Subjective No events overnight. Pt resting comfortably in bed. Review of Systems Review of Systems: CONST: Negative for fever, body aches and chills. HENT: Negative for neck pain/stiffness, headache, congestion, sore throat, swelling. EYES: Negative for discharge/pain or vision changes. RESP: Negative for cough/hemoptysis and shortness of breath. CV: Negative chest pain, difficulty breathing, palpitations. ABD: Negative pain, nausea, vomiting. : Negative increase frequency, dysuria, blood in urine or stool. MUSC: Negative for muscle aches, edema. SKIN: Negative rash, lesions/sores. NEURO: Negative headache, dizziness, weakness. Physical Exam Physical Exam: GENERAL APPEARANCE NAD, activity normal for age, well developed/ well nourished, no cyanosis, pallor, or diaphoresis. EYES lids/conjunctiva normal. EARS/NOSE/THROAT Mucous membranes moist, nares normal, lips/teeth normal uvula midline without oral pharyngeal erythema, exudate or swelling TMs normal bilaterally. No lymphangitis/lymphedema. HEAD/NECK normocephalic atraumatic, no facial trauma, neck is supple. RESPIRATORY respiratory effort normal, speaks in full sentences, no tripod position, no accessory muscle use. Lungs clear to auscultation without rhonchi, wheezes, rales CARDIAC Regular rate and rhythm, no edema. ABDOMINAL : abdominal incisions c/d/i, TATIANA drain in place. MUSCLES/EXTREMITIES No abnormal range of motion, no swelling. SKIN Warm, pink and dry. No rashes, dermatoses, petechiae or lesions. NEUROLOGICAL Speech is clear and appropriate. Normal level of consciousness. Gait and coordination are normal. 5/5 strength in all extremities. PSYCH Normal mood and affect. Judgement/competence is appropriate Results & Data Results & Data Vital Signs (Past 12 Hours) Vital Signs Temp Pulse Pulse Resp BP Pulse Ox O2 Del Method 04/03/25 07:57 36.5 C 73 20 121/75 90 Room Air 04/03/25 05:51 93 Room Air 04/03/25 03:11 36.5 C 64 18 111/77 95 Nasal Cannula 04/02/25 22:55 36.9 C 80 20 122/78 95 Nasal Cannula O2 Flow Rate 04/03/25 07:57 04/03/25 05:51 04/03/25 03:11 2 04/02/25 22:55 2 PG Care Time/CCT Total # of Minutes Spent Total Time Spent with Patient: Total time spent is greater than 50% in coordination of care (as documented) at patient's floor/unit and/or counseling patient: Coding Level of Care Code 28578 SUB INP/OBS CARE 235MIN Diagnoses Pelvic mass R19.00 Atrial fibrillation I48.91 HTN (hypertension) I10 Hyperlipidemia E78.5
--- NOTE | 2025-04-03 14:52 | Urology Progress Note ---
Date of Service April 03, 2025 Assessment & Plan (1) Pelvic mass: Plan: (2) Elevated INR: (3) History of TIA (transient ischemic attack): (4) PIN (prostatic intraepithelial neoplasia): (5) Prostatic mass: (6) Bladder outlet obstruction: (7) Elevated PSA: (8) Atrial fibrillation: Plan - Pt POD#2 s/p Robotic Assisted Laparoscopic Excision of Pelvic Mass; Cystoscopy, bilateral stent placement/exchange Complex closure/repair of bladder. Repair of bladder neck, and complex closure/repair of prostate/urethra. Extensive lysis of adhesions. - Patient afebrile overnight - He had some postoperative hypotension, which has resolved Reviewed. Stable findings. Hemoglobin 9.6. - Tolerating bilateral ureteral stents with minimal bother - Incisions appropriately tender - Advance diet as tolerated - TATIANA with serosanguinous drainage, maintain for now - Johnson patent and draining appropriately- urine output has improved - Plan to maintain Johnson catheter until urology follow-up Plan to restart patient's anticoagulation. Will be monitored overnight to see if patient is tolerating. - Anticipate discharge tomorrow if patient is tolerating the restarting of the Coumadin Admission and Anticipated Discharge Date Admission Date: April 01, 2025 Subjective Postop from urologic surgery. Patient has been tolerating well, but is having some pain and discomfort. Incisions have been mild sore. Having some abdominal distension/gas pains. Has tolerated catheter. Has not had severe pain or uncontrollable pain. Patient has been ambulating. Has not had bowel movement or major change. No new nausea or vomiting. Had tolerated anesthesia without major problems Tolerated liquid diet postoperatively. Has been advancing. Review of Systems Review of Systems: All systems reviewed & are unremarkable except as noted in HPI & below Physical Exam Physical Exam: General: Alert in no acute distress. HEENT: Normocephalic Atraumatic. Inspection normal. Cranial Nerves 2-12 Grossly intact. Normal inspection of face. Normal inspection of neck. Psychologic: Normal affect. Respiratory: Nonlabored. No use of accessory muscles. No tachypnea or dyspnea. Cardiovascular: No tachycardia Skin: [place] and Dry. No rashes or visible lesions. Extremities/Lymphatics: No edema Abdomen: Appropriately tender. Mild distended. No rebound or guarding. Wound: Clean, dry, covered. Results & Data Vital Signs (Past 12 Hours) Vital Signs Temp Pulse Pulse Pulse Resp BP Pulse Ox 10/04/25 14:12 78 04/03/25 11:58 36.5 C 81 20 118/84 04/03/25 07:57 36.5 C 73 20 121/75 90 04/03/25 05:51 93 04/03/25 03:11 36.5 C 64 18 111/77 95 O2 Del Method O2 Flow Rate 04/03/25 14:12 04/03/25 11:58 04/03/25 07:57 Room Air 04/03/25 05:51 Room Air 04/03/25 03:11 Nasal Cannula 2 PG Care Time/CCT Total # of Minutes Spent Total Time Spent with Patient: Total time spent is greater than 50% in coordination of care (as documented) at patient's floor/unit and/or counseling patient: Coding Level of Care Code None Diagnoses Pelvic mass R19.00 Elevated INR R79.1 History of TIA (transient ischemic attack) Z86.73 PIN (prostatic intraepithelial neoplasia) N42.31 Prostatic mass N42.89 Bladder outlet obstruction N32.0 Elevated PSA R97.20 Atrial fibrillation I48.91
[2025-04-03 17:32] LABS: INR 1.2 (0.9-1.1); Prothrombin Time 12.4 Seconds (9.0-12.0)
[2025-04-03] MEDS: WARFARIN SOD 4 MG TAB PO SCH (18:15)
[2025-04-03] MEDS: POLYETHYLENE (MIRALAX) 17 GM PACK PO PRN (21:32)
[2025-04-04 06:13] LABS: Hematocrit (blood only) 31.1 % (42.0-52.0); Hemoglobin 10.4 g/dl (14.0-18.0); Immature Granulocytes # (auto) 0.05 K/uL (0.01-0.20); Immature Granulocytes % (auto) 0.5 %; Mean Corpuscular Hemoglobin 27.7 pg (25.0-34.0); Mean Corpuscular Volume 82.7 fL (80.0-100.0); Platelet Count 218 K/uL (130-400); RDW Standard Deviation 43.5 fL (36.4-46.3); Red Blood Count 3.76 M/uL (4.70-6.10); White Blood Count 9.37 K/ul (4.8-10.8)
[2025-04-04 06:38] LABS: Anion Gap 6.0 (3-11); Blood Urea Nitrogen 14.0 mg/dl (6-23); Calcium 8.5 mg/dl (8.6-10.3); Carbon Dioxide 25.0 mmol/L (21-32); Chloride 104.0 mmol/L (98-107); Creatinine Clr Calc Pharmacy 126.8 ml/min; Glucose 142.0 mg/dl (70-99(Fasting)); Potassium 3.3 mmol/L (3.5-5.1); Sodium 135.0 mmol/L (136-145)
[2025-04-04 06:51] LABS: INR 1.2 (0.9-1.1); Prothrombin Time 12.1 Seconds (9.0-12.0)
--- NOTE | 2025-04-04 12:01 | Hospitalist Progress Note ---
Date of Service April 04, 2025 Assessment & Plan (1) Pelvic mass: Plan: Pain control Follow pathology results Maintain Johnson catheter - TATIANA drain - D/C as per urology (2) Atrial fibrillation: Plan: -coumadin (3) HTN (hypertension): Plan: -amlodipine, metoprolol (4) Hyperlipidemia: Plan: -atorvastatin Admission and Anticipated Discharge Date Admission Date: April 01, 2025 Subjective No events overnight. Pt resting comfortably in bed. Review of Systems Review of Systems: CONST: Negative for fever, body aches and chills. HENT: Negative for neck pain/stiffness, headache, congestion, sore throat, swelling. EYES: Negative for discharge/pain or vision changes. RESP: Negative for cough/hemoptysis and shortness of breath. CV: Negative chest pain, difficulty breathing, palpitations. ABD: Negative pain, nausea, vomiting. : Negative increase frequency, dysuria, blood in urine or stool. MUSC: Negative for muscle aches, edema. SKIN: Negative rash, lesions/sores. NEURO: Negative headache, dizziness, weakness. Physical Exam Physical Exam: GENERAL APPEARANCE NAD, activity normal for age, well developed/ well nourished, no cyanosis, pallor, or diaphoresis. EYES lids/conjunctiva normal. EARS/NOSE/THROAT Mucous membranes moist, nares normal, lips/teeth normal uvula midline without oral pharyngeal erythema, exudate or swelling TMs normal bilaterally. No lymphangitis/lymphedema. HEAD/NECK normocephalic atraumatic, no facial trauma, neck is supple. RESPIRATORY respiratory effort normal, speaks in full sentences, no tripod position, no accessory muscle use. Lungs clear to auscultation without rhonchi, wheezes, rales CARDIAC Regular rate and rhythm, no edema. ABDOMINAL : abdominal incisions c/d/i, TATIANA drain in place. MUSCLES/EXTREMITIES No abnormal range of motion, no swelling. SKIN Warm, pink and dry. No rashes, dermatoses, petechiae or lesions. NEUROLOGICAL Speech is clear and appropriate. Normal level of consciousness. Gait and coordination are normal. 5/5 strength in all extremities. PSYCH Normal mood and affect. Judgement/competence is appropriate Results & Data Results & Data Vital Signs (Past 12 Hours) Vital Signs Temp Pulse Pulse Pulse Resp BP Pulse Ox 04/04/25 11:50 36.6 C 75 20 119/72 97 10/05/25 07:45 36.4 C L 90 20 116/75 93 04/04/25 07:22 90 04/04/25 03:04 36.4 C L 87 18 156/92 H 92 O2 Del Method 04/04/25 11:50 Room Air 04/04/25 07:45 Room Air 04/04/25 07:22 04/04/25 03:04 Room Air PG Care Time/CCT Total # of Minutes Spent Total Time Spent with Patient: Total time spent is greater than 50% in coordination of care (as documented) at patient's floor/unit and/or counseling patient: Coding Level of Care Code 23072 SUB INP/OBS CARE 2/35MIN Diagnoses Pelvic mass R19.00 Atrial fibrillation I48.91 HTN (hypertension) I10 Hyperlipidemia E78.5
[2025-04-04] MEDS: MAGNESIUM HYDROXIDE SUSP 30 ML UDC PO PRN (12:07)
--- NOTE | 2025-04-04 16:06 | Urology Progress Note ---
Date of Service April 04, 2025 Assessment & Plan (1) Pelvic mass: Plan: (2) Elevated INR: (3) History of TIA (transient ischemic attack): (4) PIN (prostatic intraepithelial neoplasia): (5) Prostatic mass: (6) Bladder outlet obstruction: (7) Elevated PSA: (8) Atrial fibrillation: Plan - Pt POD#3 s/p Robotic Assisted Laparoscopic Excision of Pelvic Mass; Cystoscopy, bilateral stent placement/exchange Complex closure/repair of bladder. Repair of bladder neck, and complex closure/repair of prostate/urethra. Extensive lysis of adhesions. - Patient afebrile overnight. No major issues overnight. - He had some postoperative hypotension, which has resolved. Hemoglobin is also stabilized. - Tolerating bilateral ureteral stents with minimal bother - Incisions appropriately tender - Advance diet as tolerated - TATIANA with serosanguinous drainage, maintain for now - Johnson patent and draining appropriately- urine output has improved - Plan to maintain Johnson catheter until urology follow-up Patient's Coumadin was restarted yesterday. Prior to starting the medication again his INR was 1.2. Was once again 1.2 this morning. Has yet to get to a therapeutic level. Did discuss this with patient as well as the corrections officers. Will need to await the transition into therapeutic levels before discharge back to the correctional facility. Will plan to do his nightly dosing as previously ordered. Will recheck INR tomorrow. If it does appear to be improving can likely be discharged for further management through their correction facility. Will plan to monitor 1 more night to reevaluate the INR in the morning and continue with current therapy. Will be monitored overnight to see if patient is tolerating. - Anticipate discharge tomorrow if patient is tolerating the restarting of the Coumadin Admission and Anticipated Discharge Date Admission Date: April 01, 2025 Subjective Postop from urologic surgery. Status post resection of large pelvic mass. Patient is on Coumadin at baseline. Had started yesterday. Hemoglobin has stabilized. Patient has been tolerating well, but is having some pain and discomfort. Incisions have been mild sore. Having some abdominal distension/gas pains. Has tolerated catheter. Has not had severe pain or uncontrollable pain. Patient has been ambulating. Has not had bowel movement or major change. No new nausea or vomiting. Had tolerated anesthesia without major problems Tolerated liquid diet postoperatively. Has been advancing. Has not had major issues. Labs have all stable however patient had a return to therapeutic levels on his Coumadin yet. Review of Systems Review of Systems: All systems were reviewed. Any pertinent positives and/or negatives are listed in the history of present illness section. Physical Exam Physical Exam: General: Alert in no acute distress. HEENT: Normocephalic Atraumatic. Inspection normal. Cranial Nerves 2-12 Grossly intact. Normal inspection of face. Normal inspection of neck. Psychologic: Normal affect. Respiratory: Nonlabored. No use of accessory muscles. No tachypnea or dyspnea. Cardiovascular: No tachycardia Skin: [place] and Dry. No rashes or visible lesions. Extremities/Lymphatics: No edema Abdomen: Appropriately tender. Mild distended. No rebound or guarding. Wound: Clean, dry, covered. : Catheter in place draining clear yellow urine. TATIANA drain: Mild serosanguineous fluid Results & Data Vital Signs (Past 12 Hours) Vital Signs Temp Pulse Pulse Pulse Resp BP Pulse Ox 04/04/25 14:27 79 04/04/25 11:50 36.6 C 75 20 119/72 97 04/04/25 07:45 36.4 C L 90 20 116/75 93 04/04/25 07:22 90 O2 Del Method 04/04/25 14:27 04/04/25 11:50 Room Air 04/04/25 07:45 Room Air 04/04/25 07:22 PG Care Time/CCT Total # of Minutes Spent Total Time Spent with Patient: Total time spent is greater than 50% in coordination of care (as documented) at patient's floor/unit and/or counseling patient: Coding Level of Care Code None Diagnoses Pelvic mass R19.00 Elevated INR R79.1 History of TIA (transient ischemic attack) Z86.73 PIN (prostatic intraepithelial neoplasia) N42.31 Prostatic mass N42.89 Bladder outlet obstruction N32.0 Elevated PSA R97.20 Atrial fibrillation I48.91
[2025-04-05 06:41] LABS: Hematocrit (blood only) 30.5 % (42.0-52.0); Hemoglobin 10.6 g/dl (14.0-18.0); Immature Granulocytes # (auto) 0.04 K/uL (0.01-0.20); Immature Granulocytes % (auto) 0.5 %; Mean Corpuscular Hemoglobin 28.3 pg (25.0-34.0); Mean Corpuscular Volume 81.6 fL (80.0-100.0); Platelet Count 222 K/uL (130-400); RDW Standard Deviation 43.0 fL (36.4-46.3); Red Blood Count 3.74 M/uL (4.70-6.10); White Blood Count 8.61 K/ul (4.8-10.8)
[2025-04-05 07:03] LABS: Anion Gap 7.0 (3-11); Blood Urea Nitrogen 11.0 mg/dl (6-23); Calcium 8.4 mg/dl (8.6-10.3); Carbon Dioxide 25.0 mmol/L (21-32); Chloride 103.0 mmol/L (98-107); Creatinine Clr Calc Pharmacy 137.7 ml/min; Glucose 99.0 mg/dl (70-99(Fasting)); Potassium 3.8 mmol/L (3.5-5.1); Sodium 135.0 mmol/L (136-145)
[2025-04-05 07:13] LABS: INR 1.2 (0.9-1.1); Prothrombin Time 12.2 Seconds (9.0-12.0)
--- NOTE | 2025-04-05 10:33 | Hospitalist Progress Note ---
Date of Service April 05, 2025 Assessment & Plan (1) Pelvic mass: (2) Atrial fibrillation: (3) HTN (hypertension): (4) Hyperlipidemia: Plan This patient is a 55-year-old male who presented on 04/01 to have a large pelvic mass excised. Transiently hypotensive postoperatively. VSS on 04/05. #Pelvic mass Pain control, fluids, perioperative antibiotics per primary team Follow-up pathology reports Continue maintain daily Johnson care TATIANA drain care Discharge disposition per Urology #Atrial fibrillation Patient is currently on Coumadin 4 mg daily INR trend: 1.2 -> 1.2 -> 1.2 Patient has been subtherapeutic at 1.2 over the past several days INR goal range 2.0 - 3.0 Note: It may take several days to see INR rises into a therapeutic range when restarting Coumadin Could potentially discharge patient on Coumadin 6 mg daily x 1-2 days, with plans to have a repeat INR drawn in 3 days to ensure stability #HTN Continue amlodipine, metoprolol #Hyperlipidemia Continue atorvastatin Discussed with urology provider recommendation; medically stable for discharge at this time; plan for discharge this afternoon. Thank you for allowing us to persuade the care of this patient; please reach out any questions or concerns. Admission and Anticipated Discharge Date Admission Date: April 01, 2025 Subjective Mr. Andrade is resting peacefully in bed this morning. He does report that he has intermittent lower abdominal pain which he rates a 4 out of 10 at present. No other complaints at this time. His last BM was on . He reports he has been able to get out of bed without lightheadedness or feeling off balance. He has been using a walker to get up to the bathroom. He denies any blood in his urine. Patient takes Coumadin for history of atrial fibrillation (no history of DVT or PE to his knowledge). ROS: Patient endorses intermittent/dull low-transverse abdominal pain. Patient denies fever, chills, night sweats, chest pain, chest cavitations, SOB, cough, N/V/D, changes in urinary habits, melena, or blood in the urine or stool. Review of Systems Review of Systems: See HPI above Physical Exam Physical Exam: General: no acute distress; 2 correctional officers at bedside; non-toxic appearing; cooperative; SpO2 93% on RA HEENT: normocephalic, atraumatic; PERRLA; vision and hearing intact Neck: supple; trachea midline Skin: warm, dry without signs of tenting; no cyanosis; no rashes, bruising, lesions, or erythema noted CV: chest wall NTP; RRR; S1/S2 normal; no murmurs/rubs/gallops; pulses intact and symmetric at radial, DP, and PT Lungs: no acute respiratory distress; symmetrical chest wall expansion; clear breath sounds across all lung wheeler w/o adventitious sounds; no wheezing ABD: Soft, mildly TTP in the lower quadrants bilaterally; erythema noted around the surgical sites on the abdomen, but sites do not show signs of acute infe ction (no purulent drainage appreciated); TATIANA drain in place draining serosanguineous fluid; BS present; no rebound/guarding; no distention : Catheter in place draining dark yellow urine MSK: no tics or fasciculations; no edema noted in the LEs b/l, nonerythematous Neuro: A&Ox3; normal mood and affect; fluent speech; sensation intact and symmetric in the LEs b/l Results & Data Results & Data Vital Signs (Past 12 Hours) Vital Signs Temp Pulse Pulse Resp BP Pulse Ox O2 Del Method 04/05/25 09:11 Room Air 04/05/25 08:36 36.6 C 80 18 131/82 93 Room Air 04/05/25 07:34 81 04/05/25 03:35 36.7 C 96 H 18 131/91 92 Room Air PG Care Time/CCT Total # of Minutes Spent Total Time Spent with Patient: Total time spent is greater than 50% in coordination of care (as documented) at patient's floor/unit and/or counseling patient: Coding [place] [address] SUB INP/OBS CARE 2/35MIN Patient Type Established History Comprehensive Exam Comprehensive Medical Decision Making Moderate Complexity Diagnoses Pelvic mass R19.00 Atrial fibrillation I48.91 HTN (hypertension) I10 Hyperlipidemia E78.5
[2025-04-05 11:02] VITALS: BP 121/84; RESP 20; TEMP 99.3; O2SAT 94
--- NOTE | 2025-04-05 11:52 | Urology Progress Note ---
Date of Service April 05, 2025 Assessment & Plan (1) Pelvic mass: Plan: - Pt POD#4 s/p Robotic Assisted Laparoscopic Excision of Pelvic Mass; Cystoscopy, bilateral stent placement/exchange Complex closure/repair of bladder. Repair of bladder neck, and complex closure/repair of prostate/urethra. Extensive lysis of adhesions. - Patient afebrile, hemodynamically stable - He had some postoperative hypotension, which has resolved - Labs today reviewedcreatinine 0.7, WBC 8.61, hemoglobin 10.6 (received 2 units PRBCs during admission) - Patient has been resumed warfarin, INR not therapeutic yet at 1.2 - Hospitalists following, appreciate assistance - Tolerating bilateral ureteral stents with minimal bother - Incisions appropriate - Tolerating diet - TATIANA with serosanguinous drainage, will plan to remove prior to discharge - Johnson patent and draining appropriately - Plan to maintain Johnson catheter until urology follow-up - Toshia can be removed 7-10 days post op - Patient ready for discharge today, all questions answered - Will arrange outpatient follow-up with Dr. Morgan Admission and Anticipated Discharge Date Admission Date: April 01, 2025 Subjective Patient seen and examined at bedside. Two long-term guards present. No acute issues overnight. Reports mild discomfort at incisions. Tolerating diet. No fever or chills. Johnson intact. Review of Systems Constitutional: as per Subjective / HPI Genitourinary: + as per Subjective / HPI Physical Exam Constitutional: no acute distress Respiratory: normal respiratory effort; no respiratory distress and no labored breathing Gastrointestinal (Abdomen): Inspection/Auscultation: abdomen normal to inspection Musculoskeletal: Head/Neck/Chest: normocephalic Skin: Surgical incisions clean dry and intact with toshia. TATIANA drain with serosanguineous output. Neurologic: moves all extremities and awake Psychiatric: Orientation: alert and oriented x 3 Genitourinary: Johnson patent and draining yellow urine Results & Data Vital Signs (Past 12 Hours) Vital Signs Temp Pulse Pulse Resp BP Pulse Ox O2 Del Method 04/05/25 11:01 37.4 C 87 20 121/84 94 Room Air 04/05/25 09:11 Room Air 04/05/25 08:36 36.6 C 80 18 131/82 93 Room Air 04/05/25 07:34 81 04/05/25 03:35 36.7 C 96 H 18 131/91 92 Room Air PG Care Time/CCT Total # of Minutes Spent Total Time Spent with Patient: Total time spent is greater than 50% in coordination of care (as documented) at patient's floor/unit and/or counseling patient: Coding Level of Care Code None Diagnoses Pelvic mass R19.00
[2025-04-05 14:42] VITALS: PULSE 81
== END 2025-04-05 18:55 | DRG 707 ==
LOC: ASU 09:52 → 4W 09:52 → OBSVTOIN 18:33